=== PATIENT | male | born 1935 | race Caucasian/White ===

== ENCOUNTER 2017-11-10 10:59 | Inpatient (IN) | payer MEDICARE, OTHER ==
[2017-11-10] MEDS ORDERED: Clindamycin 600 MG IVPREMIX(* 600 MG/50 ML SDV IV ONE (11:45)
[2017-11-10] MEDS ORDERED: NS 0.9% 1000 ML*IV.FLUID IV ONE (11:45)
[2017-11-10] MEDS ORDERED: ceFAZolin 1 GM ADVAN(*) 1 GM in NS 0.9% 50 ML* 50 ML IVPB ONE (11:45)
--- NOTE | 2017-11-10 11:50 | ED ---
HPI Febrile Illness - HPI Summary HPI Summary: This is scribe Lasha Attebivet documenting for attending Nicki Montesinos. Patient is an 82 y/o M presents to ED with a fever. Assoc. Sx: Fever, fatigue, lower back pain, R knee pain, diaphoresis. Caregiver at bedside, unsure of last stool passage. She states that he is usually a very loud, independent man that is very sarcastic/lively. She reports he usually gets up early and eats breakfast but he did not do so this AM. Caregiver struggled to get him out of bed ~0930 this AM. When he was able to stand, he was leaning towards his right side, very unsteady gait, untalkative, increased confusion and a very hard stomach. I, Dr. Montesinos, personally performed the services described in this documentation as scribed in my presence and it is both accurate and complete. - History of Current Complaint Chief Complaint: EDFever Time Seen by Provider: 11/10/17 11:18 Hx Obtained From: Patient Onset/Duration: Started Hours Ago, Still Present Timing: Constant Pain Intensity: 6 Pain Scale Used: 0-10 Numeric Associated Signs and Symptoms: Diaphoresis, Other: - POS: fatigue, R knee pain, back pain - Allergy/Home Medications Allergies/Adverse Reactions: Allergies Allergy/AdvReac Type Severity Reaction Status Date / Time No Known Allergies Allergy Verified 11/10/17 13:04 Home Medications: Home Medications Acetaminophen TAB* [Tylenol TAB*] 650 mg PO Q4H PRN 11/10/17 [History Confirmed 11/10/17] Acetaminophen TAB* [Tylenol TAB*] 650 mg PO QAM PRN 11/10/17 [History Confirmed 11/10/17] Atorvastatin* [Lipitor*] 40 mg PO DAILY 11/10/17 [History Confirmed 11/10/17] Guaifenesin/Dextromethorphan [Robitussin Cough-Chest Dm Liq] 10 ml PO Q6HR PRN 11/10/17 [History Confirmed 11/10/17] Lisinopril TAB* [Prinivil TAB*] 20 mg PO DAILY 11/10/17 [History Confirmed 11/10] Melatonin 5 mg PO BEDTIME 11/10/17 [History Confirmed 11/10/17] Mineral Oil/Hydrophil Petrolat [Aquaphor Ointment] 396 gm TOPICAL BID 11/10/17 [ History Confirmed 11/10/17] PARoxetine HCL TAB* [Paxil TAB*] 20 mg PO DAILY 11/10/17 [History Confirmed ] risperiDONE [Risperidone] 0.5 mg PO DAILY PRN 11/10/17 [History Confirmed ] risperiDONE [Risperidone] 0.5 mg PO TID 11/10/17 [History Confirmed 11/10/17] PMH/Surg Hx/FS Hx/Imm Hx Endocrine/Hematology History: Denies: Hx Diabetes Cardiovascular History: Reports: Hx Hypertension, Other Cardiovascular Problems/ Disorders - Hyperlipidemia Infectious Disease History: No Infectious Disease History: Denies: Traveled Outside the [place] in Last 30 Days - Family History Known Family History: Positive: Other - Stroke, [place] Negative: Cardiac Disease, Diabetes - Social History Occupation: Retired Lives: With Family Review of Systems Positive: Fever, Fatigue, Skin Diaphoresis Positive: Other - POS: back pain, R knee pain. All Other Systems Reviewed And Are Negative: Yes Physical Exam Triage Information Reviewed: Yes Vital Signs On Initial Exam: Initial Vitals Resp 27 11/10/17 11:08 Vital Signs Reviewed: Yes Diagnostics - Vital Signs Vital Signs Temp Pulse Resp BP Pulse Ox 11/10/17 11:10 100.6 F 91 17 108/52 92 11/10/17 11:08 27 - Laboratory Result Diagrams: 11/10/17 12:07 11/10/17 21:10 Lab Statement: Any lab studies that have been ordered have been reviewed, and results considered in the medical decision making process. - Radiology cxr Xray Interpretation: No Acute Changes - IMPRESSION: No evidence of active cardiopulmonary disease. Radiology Interpretation Completed By: Radiologist - Report has been reviewed by provider and radiologist. - CT Brain CT CT Interpretation: No Acute Changes - IMPRESSION: Mild involutional change and stigmata of central large vessel atherosclerotic disease and peripheral chronic small vessel ischemic disease. No acute intracranial process evident. CT Interpretation Completed By: Radiologist - Report has been reviewed by provider and radiologist. - Ultrasound No standard instances Ultrasound Interpretation: No Acute Changes - IMPRESSION: DEPENDENT EDEMA. NO EVIDENCE OF DEEP VENOUS THROMBOSIS Ultrasound Interpretation Completed By: Radiologist - report has been reviewed by provider and radiologist. - EKG 1152 Cardiac Rate: NL - 89 bpm EKG Rhythm: Sinus Rhythm ST Segment: Normal EKG Interpretation: nml axis Course/Dx - Course Assessment/Plan: This patient is an 82-year-old male who [facility] with a chief complaint of having fevers up to 101, blood pressure 90/40, lethargic and mildly somnolent. Patient has past medical history for dementia, dyslipidemia, depression and occasionally he is delusional. As per primary care physician Dr. Maddox reports that a couple days ago and she increase his Risperdal and since then the patient is becoming more somnolent. Today he has been more lethargic, didn't want to go to the dining room to eat and he is febrile. After initial examination I noticed that the patient is positive for SIRS criteria therefore I used the sepsis protocol. Blood cultures were sent before antibiotics were given. Blood test results shows a white blood cell count of 26.9, neutrophils of 94 but is no bandemia. Sodium is 140, creatinine is 1.33, lactic acid is 4, troponin is 0.24, CRP is 38.0 and pro-calcitonin is 40.1. Chest x-ray shows no acute cardiopulmonary disease. Head CT impression: No acute intracranial pathology. We attempted twice to get and urinary Henderson catheter for control of hemodynamically instability however we failed. We attempted with a coud and we would not successful. Bladder scan shows only 220 cc therefore, I discussed case with Dr. Aguila from urology and he recommends to continue given IV fluids and see if the patient is in urinary retention. We will repeat the last scan in approximately one hour. At this time I added a broader spectrum antibiotic and I gave the patient Cefepime. The nurse was able to place a Henderson catheter and he has expressed approximate 400 cc of urine. Urinalysis is negative for UTI. At this point I discussed my physical exam, findings and test results with Dr. Bowling who accepted the patient for admission. The patient is feeling better, patient is a stable, patient is more awake. - Diagnoses Provider Diagnoses: Severe sepsis, Cellulitis, Elevated troponin I level - Provider Notifications Discussed Care Of Patient With: Juan Aguila Time Discussed With Above Provider: 14:00 Instructed by Provider To: Other - Discussed care of pt with Dr. Aguila, he reports blood scan was 200+. They will wait 1 hr and hydrate the patient to see if he can produce some urine. If he is unable to produce urine, he will have a suprapubic henderson catheter implanted. - Critical Care Time Critical Care Time: 75-104 min Discharge - Sign-Out/Discharge Documenting (check all that apply): Patient Departure - Discharge Plan Condition: Stable Disposition: ADMITTED TO [facility] - Billing Disposition and Condition Condition: STABLE Disposition: Admitted to [facility] Attestations Scribe Attestation: I, Dr. Montesinos personally performed the services described in this documentation as scribed in my presence and it is both accurate and complete. User Type: Provider with Scribe Provider Attestation: The documentation recorded by the scribe accurately reflects the service I personally performed and the decisions made by me.
[2017-11-10] MEDS ORDERED: Naloxone* 0.4 MG/ML 1 ML VIAL IV PUSH ONE (12:00)
[2017-11-10 12:16] LABS: Hematocrit 41 % (42-52); Mean Corpuscular HGB Conc 34 g/dl (31-36); Mean Corpuscular Hemoglobin 32 pg (27-31); Mean Corpuscular Volume 94 fL (80-94); Mean Platelet Volume 8.6 um3 (7.4-10.4); Platelet Count 170 10^3/ul (150-450); Red Blood Count 4.35 10^6/ul (4.00-5.40); Red Cell Distribution Width 13 % (10.5-15); White Blood Count 26.9 10^3/ul (3.5-10.8)
--- NOTE | 2017-11-10 12:21 | RAD ---
HISTORY: fever COMPARISONS: None VIEWS: 2: frontal portable view of the chest at 12:04 PM FINDINGS: LINES AND TUBES: None. CARDIOMEDIASTINAL SILHOUETTE: The cardiomediastinal silhouette is normal for portable technique. PLEURA: The costophrenic angles are sharp. No pleural abnormalities are noted. LUNG PARENCHYMA: The lungs are clear. ABDOMEN: The upper abdomen is clear. There is no subphrenic gas. BONES AND SOFT TISSUES: No bone or soft tissue abnormalities are noted. IMPRESSION: NO ACTIVE CARDIOPULMONARY DISEASE.
[2017-11-10 12:28] LABS: INR 1.04 (0.77-1.02)
[2017-11-10 12:44] LABS: EGFR Non-African American 51.6 (>60)
--- NOTE | 2017-11-10 12:57 | RAD ---
INDICATION: Pain and swelling. COMPARISON: None TECHNIQUE: Duplex interrogation of the right lowerextremity was performed. FINDINGS: Deep veins: The common femoral, great saphenous, profunda femoris, proximal, mid, and distal deep femoral, popliteal, posterior tibial, and peroneal veins are patent. There is normal compressibility, augmentation, and phasic flow. Superficial veins: There are no findings of superficial thrombophlebitis. Popliteal fossa:There is no evidence of a popliteal cyst. Soft tissues:There is mild diffuse soft tissue edema at the level of the calf. IMPRESSION: DEPENDENT EDEMA. NO EVIDENCE OF DEEP VENOUS THROMBOSIS
--- NOTE | 2017-11-10 13:18 | RAD ---
Indication: Altered mental status. Comparison: No relevant prior exams available on the [facility] PACS for comparison. Technique: Noncontrast CT vertex of skull through foramen magnum. Report: Mild prominence of the cerebral sulci reflecting atrophy. Unremarkable ventricles and basal cisterns. Decreased density in the periventricular and subcortical white matter while non-specific is most likely due to chronic microangiopathy. Negative for coto matter white matter obscuration, intra or extra-axial hemorrhage, or mass effect. Atherosclerotic calcification at the central intracranial arteries. Unremarkable orbital contents. No suspicious calvarial or skull base lesion evident. Clear visualized paranasal sinuses and mastoid air spaces. Unremarkable scalp. IMPRESSION: #. Mild involutional change and stigmata of central large vessel atherosclerotic disease and peripheral chronic small vessel ischemic disease. #. No acute intracranial process evident.
[2017-11-10 13:31] LABS: ABS Basophils 0.2 10^3/ul (0-0.2); ABS Eosinophils 0 10^3/ul (0-0.6); ABS Lymphocytes 0.4 10^3/ul (1.0-4.8); ABS Neutrophils 25.3 10^3/ul (1.5-7.7); ABS Nucleated RBC 0 10^3/ul; Eosinophil % 0 % (0-6); Lymphocyte % 1.6 % (25-47); Nucleated Red Blood Cells % 0.1
[2017-11-10] MEDS ORDERED: Cefepime 2 GM in Dextrose(*) 2 GM/50 ML BAG IV ONE (14:08)
[2017-11-10] MEDS ORDERED: Lidocaine 2% JELLY* 6 ML JELLY TOPICAL ONE (14:14)
[2017-11-10] MEDS ORDERED: Acetaminophen TAB* 325 MG PO PRN (14:42)
[2017-11-10 14:44] LABS: Urine Appearance Cloudy; Urine Blood 3+ (Negative); Urine Color Yellow; Urine Ketones Negative (Negative); Urine Protein 1+(30 mg/dL) (Negative); Urine Red Blood Cell 3+(>10/hpf) (Absent); Urine Specific Gravity 1.015 (1.010-1.030); Urine Urobilinogen Negative (Negative); Urine White Blood Cell Trace(0-5/hpf) (Absent)
--- NOTE | 2017-11-10 16:52 | CONSULT ---
Consult Consult: Consultation Note -- Critical Care Requesting Physician: Dr Chowdhury Reason for consult: septic shock Limitations in history/physical: dementia Date of consult: 11/10/2017 HPI: 82y M pmhx HTN, HLD, Dementia; patient comes to ER for fatigue, lethargy. He was confused as per caregiver and lethargic at home in the morning. Difficult to obtain history from patient due to dementia. In ER, tmax 100.6, tachycardic 90+, BP >100, sats 91%. He was found to have elevated WBC and ERIN and LA 4.0, next 4.7. He was started on a sepsis protocol, given IVF and IV abx. Currently patient in ICU, awake/alert, confused in history. denies complaints at this time. no distress. Not on pressors; on IVF now. ED/floor Course: as above ROS: limited ROS due to dementia PMHx: HTN, HLD, Dementia PSHx: unknown Family History: stroke, CVA Social History: unknown Allergies: Allergies Allergy/AdvReac Type Severity Reaction Status Date / Time No Known Allergies Allergy Verified 11/10/17 13:04 Home Medications: Acetaminophen TAB* [Tylenol TAB*] 650 mg PO Q4H PRN 11/10/17 [History Confirmed 11/10/17] Acetaminophen TAB* [Tylenol TAB*] 650 mg PO QAM PRN 11/10/17 [History Confirmed 11/10/17] Atorvastatin* [Lipitor*] 40 mg PO DAILY 11/10/17 [History Confirmed 11/10/17] Guaifenesin/Dextromethorphan [Robitussin Cough-Chest Dm Liq] 10 ml PO Q6HR PRN 11/10/17 [History Confirmed 11/10/17] Lisinopril TAB* [Prinivil TAB*] 20 mg PO DAILY 11/10/17 [History Confirmed 11/10] Melatonin 5 mg PO BEDTIME 11/10/17 [History Confirmed 11/10/17] Mineral Oil/Hydrophil Petrolat [Aquaphor Ointment] 396 gm TOPICAL BID 11/10/17 [ History Confirmed 11/10/17] PARoxetine HCL TAB* [Paxil TAB*] 20 mg PO DAILY 11/10/17 [History Confirmed ] risperiDONE [Risperidone] 0.5 mg PO DAILY PRN 11/10/17 [History Confirmed ] risperiDONE [Risperidone] 0.5 mg PO TID 11/10/17 [History Confirmed 11/10/17] Tele: nsr Vitals: Vital Signs Temp 100.1 F 11/10/17 16:00 Pulse 101 11/10/17 16:16 Resp 25 11/10/17 18:35 BP 173/85 11/10/17 16:16 Pulse Ox 96 11/10/17 16:16 Intake & Output 11/09/17 11/10/17 11/10/17 18:59 06:59 18:59 Intake Total 3120 Output Total 100 Balance 3020 Weight 98.3 kg Intake: IV Fluids 3120 Output: Henderson 100 O2/Vent: RA Infusions: LR Current Medications: Acetaminophen (Tylenol Tab*) 650 mg PO Q4H PRN PRN Reason: FEVER/PAIN Atorvastatin Calcium (Lipitor*) 40 mg PO DAILY [facility] Heparin Sodium (Porcine) (Heparin Vial(*)) 5,000 units SUBCUT Q8HR [facility] Lactated Ringer's (Lactated Ringers 1000 Ml Bag*) 1,000 mls @ 150 mls/hr IV PER RATE [facility] Last Admin: 11/10/17 16:26 Dose: 150 mls/hr Lactated Ringer's (Lactated Ringers 1000 Ml Bag*) 1,000 mls @ 0 mls/hr IV WIDE OPEN JULIO Stop: 11/10/17 23:59 Last Admin: 11/10/17 16:37 Dose: 999 mls/hr Vancomycin HCl 1,250 mg/ (Sodium Chloride) 250 mls @ 166.667 mls/hr IVPB ONCE ONE Stop: 11/10/17 18:59 Vancomycin HCl 1,000 mg/ (Sodium Chloride) 250 mls @ 166.667 mls/hr IVPB .CONTINUE PROTOCOL JULIO; Protocol Melatonin (Melatonin) 6 mg PO BEDTIME [facility] Paroxetine HCl (Paxil Tab*) 20 mg PO DAILY [facility] Pharmacy Consult (Zosyn Per Pharmacy*) 1 note FOLLOW UP .ZOSYN PER PHARMACY [facility] Risperidone (Risperdal) 0.5 mg PO TID [facility] Risperidone (Risperdal) 0.5 mg PO DAILY PRN PRN Reason: AGITATION Physical Exam: General: awake, alert, no distress, no diaphoresis Head: normocephalic, atraumatic HEENT: no pallor, no icterus, moist mucous membranes Neck: soft, supple, no stridor CVS: normal rate, regular, no murmur Resp: bilateral air entry, no rhales/wheeze/rhonchi, no acc muscle use Abdomen: soft, nontender, nondistended, bowel sounds present Ext: pulses+; right LE erythema from lower leg to mid-lower thigh, nontender, blanchable, pulses+ b/l, able to move ext without restriction. no palpable crepitus on right leg. Skin: intact, no wound noted. right leg erythema as above Neuro: awake, alert, orientedx1, moving all extremities, no gross focal deficit Labs: Laboratory Results - last 24 hr 11/10/17 11/10/17 11/10/17 12:07 12:07 12:07 WBC 26.9 H RBC 4.35 Hgb 14.0 Hct 41 L MCV 94 MCH 32 H MCHC 34 RDW 13 Plt Count 170 MPV 8.6 Neut % (Auto) 94.0 H Lymph % (Auto) 1.[address] [facility] % (Auto) 3.6 Eos % (Auto) 0 Baso % (Auto) 0.8 Absolute Neuts (auto) 25.3 H Absolute Lymphs (auto) 0.4 L Absolute Monos (auto) 1.0 H Absolute Eos (auto) 0 Absolute Basos (auto) 0.2 Absolute Nucleated RBC 0 Nucleated RBC % 0.1 ESR 10 INR (Anticoag Therapy) 1.04 H APTT 27.2 Fibrinogen 394.5 ABG pH ABG pCO2 ABG pO2 ABG HCO3 ABG O2 Saturation ABG Base Excess Sodium 140 Potassium TNP Chloride 103 Carbon Dioxide 27 Anion Gap 10 BUN 22 Creatinine 1.33 H Est GFR ( Amer) 62.4 Est GFR (Non-Af Amer) 51.6 BUN/Creatinine Ratio 16.5 Glucose 172 H Lactic Acid Calcium 9.1 Total Bilirubin 1.10 H AST TNP ALT 27 Alkaline Phosphatase 80 Total Creatine Kinase 229 H Troponin I 0.24 H* C-Reactive Protein 38.06 H B-Natriuretic Peptide Total Protein 5.8 L Albumin 3.7 Globulin 2.1 Albumin/Globulin Ratio 1.8 Procalcitonin Urine Color Urine Appearance Urine pH Ur Specific [place] Urine Protein Urine Ketones Urine Blood Urine Nitrate Urine Bilirubin Urine Urobilinogen Ur Leukocyte Esterase Urine WBC (Auto) Urine RBC (Auto) Urine Bacteria Hyaline Casts Urine Glucose 11/10/17 11/10/17 11/10/17 12:07 12:07 12:07 WBC RBC Hgb Hct MCV MCH MCHC RDW Plt Count MPV Neut % (Auto) Lymph % (Auto) [facility] % (Auto) Eos % (Auto) Baso % (Auto) Absolute Neuts (auto) Absolute Lymphs (auto) Absolute Monos (auto) Absolute Eos (auto) Absolute Basos (auto) Absolute Nucleated RBC Nucleated RBC % ESR INR (Anticoag Therapy) APTT Fibrinogen ABG pH ABG pCO2 ABG pO2 ABG HCO3 ABG O2 Saturation ABG Base Excess Sodium Potassium Chloride Carbon Dioxide Anion Gap BUN Creatinine Est GFR ( Amer) Est GFR (Non-Af Amer) BUN/Creatinine Ratio Glucose Lactic Acid 4.0 H* Calcium Total Bilirubin AST ALT Alkaline Phosphatase Total Creatine Kinase Troponin I C-Reactive Protein B-Natriuretic Peptide 153 H Total Protein Albumin Globulin Albumin/Globulin Ratio Procalcitonin 48.1 H Urine Color Urine Appearance Urine pH Ur Specific [place] Urine Protein Urine Ketones Urine Blood Urine Nitrate Urine Bilirubin Urine Urobilinogen Ur Leukocyte Esterase Urine WBC (Auto) Urine RBC (Auto) Urine Bacteria Hyaline Casts Urine Glucose 11/10/17 11/10/17 11/10/17 14:27 14:45 15:40 WBC RBC Hgb Hct MCV MCH MCHC RDW Plt Count MPV Neut % (Auto) Lymph % (Auto) [facility] % (Auto) Eos % (Auto) Baso % (Auto) Absolute Neuts (auto) Absolute Lymphs (auto) Absolute Monos (auto) Absolute Eos (auto) Absolute Basos (auto) Absolute Nucleated RBC Nucleated RBC % ESR INR (Anticoag Therapy) APTT Fibrinogen ABG pH 7.35 ABG pCO2 46 H ABG pO2 < 33 L* ABG HCO3 23.4 ABG O2 Saturation 57.6 L ABG Base Excess -0.6 Sodium Potassium Chloride Carbon Dioxide Anion Gap BUN Creatinine Est GFR ( Amer) Est GFR (Non-Af Amer) BUN/Creatinine Ratio Glucose Lactic Acid 4.7 H* Calcium Total Bilirubin AST ALT Alkaline Phosphatase Total Creatine Kinase Troponin I C-Reactive Protein B-Natriuretic Peptide Total Protein Albumin Globulin Albumin/Globulin Ratio Procalcitonin Urine Color Yellow Urine Appearance Cloudy Urine pH 5.0 Ur Specific [place] 1.015 Urine Protein 1+(30 mg/dl) A Urine Ketones Negative Urine Blood 3+ A Urine Nitrate Negative Urine Bilirubin Negative Urine Urobilinogen Negative Ur Leukocyte Esterase Negative Urine WBC (Auto) Trace(0-5/hpf) Urine RBC (Auto) 3+(>10/hpf) A Urine Bacteria Absent Hyaline Casts Present A Urine Glucose Negative 11/10/17 11/10/17 15:40 18:30 WBC RBC Hgb Hct MCV MCH MCHC RDW Plt Count MPV Neut % (Auto) Lymph % (Auto) [facility] % (Auto) Eos % (Auto) Baso % (Auto) Absolute Neuts (auto) Absolute Lymphs (auto) Absolute Monos (auto) Absolute Eos (auto) Absolute Basos (auto) Absolute Nucleated RBC Nucleated RBC % ESR INR (Anticoag Therapy) APTT Fibrinogen ABG pH ABG pCO2 ABG pO2 ABG HCO3 ABG O2 Saturation ABG Base Excess Sodium Potassium Chloride Carbon Dioxide Anion Gap BUN Creatinine Est GFR ( Amer) Est GFR (Non-Af Amer) BUN/Creatinine Ratio Glucose Lactic Acid Calcium Total Bilirubin AST ALT Alkaline Phosphatase Total Creatine Kinase Troponin I 0.44 H* 0.63 H* C-Reactive Protein B-Natriuretic Peptide Total Protein Albumin Globulin Albumin/Globulin Ratio Procalcitonin Urine Color Urine Appearance Urine pH Ur Specific [place] Urine Protein Urine Ketones Urine Blood Urine Nitrate Urine Bilirubin Urine Urobilinogen Ur Leukocyte Esterase Urine WBC (Auto) Urine RBC (Auto) Urine Bacteria Hyaline Casts Urine Glucose Imaging: cxr 11/10 - no infiltrate/effusion CT brain 11/10 - no acute process LE venous duplex 11/10 - no dvt Assessment: 82y M pmhx HTN, HLD, Dementia; patient comes to ER for fatigue, lethargy. He was confused as per caregiver and lethargic at home in the morning. Difficult to obtain history from patient due to dementia. In ER, tmax 100.6, tachycardic 90+, BP >100, sats 91%. He was found to have elevated WBC and ERIN and LA 4.0, next 4.7. He was started on a sepsis protocol. -Septic Shock -Right leg Cellulitus -ERIN -Delirium on Dementia -NSTEMI, type 2 suspected, demand from sepsis Plan: Neuro- baseline dementia. acute delirium 2/2 to likely underlying sepsis, hence metabolic encephalopathy. neurochecks. ct brain negative. Antipsychotics PRN for agitation would be appropriate. avoid bdz, Delirium prec. CVS- BP stable, tachycardia improving. No pressors needed. Cont IVF infusion, change to NS 100cc/hr. Monitor urine output. hold antihypertensives. trend LA, septic shock by criteria. IV abx. trend troponins/cpk/ckmb Resp- no resp distress, on RA. CXR clear of infiltrate. ID- tmax 100.6, wbc 24. Right leg cellulitus+. CXR clear. Blood cultures. Would cover gram positive organisms and anerobes, change to IV zosyn and Vanco. no visible superficial lesion/wound. GI- cardiac diet. Renal- ERIN, likely from septic ATN + volume depletion. IVF bolus/hydration. K okay. Lactic acidosis/metabolic acidosis from tissue hypoperfusion. henderson as needed. Heme- hg stable. plt stable. DVT proph chemical; no SCD on right leg. Endo- fingerstick as needed. Musculsk- pressure ulcer prophylaxis. Bedrest. Wounds- none; keep right leg elevated. Nutrition- cardiac diet DVT prophylaxis: heparin sq GI prophylaxis:- Central Line: - Arterial Line: - Henderson Cathetor: - Disposition: ICU Code Status: DNR Total Critical Care time is 35 minutes, excluding procedures/teaching Ramin Garg MD Html Developer (Electronically Signed)
[2017-11-10] MEDS ORDERED: Piperacillin/Tazobac ADVAN(*) 3.375 GM in NS 0.9% 100 ML* 100 ML IVPB ONE (17:00)
[2017-11-10] MEDS ORDERED: Zosyn per Pharmacy* NOTE FOLLOW UP SCH (17:00)
--- NOTE | 2017-11-10 17:07 | HP ---
CC: Dr. Maddox HISTORY AND PHYSICAL: DATE OF ADMISSION: 11/10/17 TIME OF EVALUATION: 2:00 p.m. PRIMARY CARE PROVIDER: Dr. Mdadox CHIEF COMPLAINT: "He is not himself," as per aide. HISTORY OF PRESENT ILLNESS: Mr. Coates is an 82-year-old male with a past medical history of dementia, hypertension, hyperlipidemia, who presents to the emergency room as he was not behaving himself. At this point, he states that he does not want to talk to me and cannot give me any history. Aide at bedside states that recently his Risperdal dose was increased and the aide noticed that he was a little less vibrant than usual. She describes him as a very loud independent man, very sarcastic, very lively, who is pretty independent with his ADLs, wakes up early to go eat his breakfast. Yesterday, during the day, she noticed that he was not so bright and she thought this was secondary to his Risperdal. This morning, he did not go for breakfast so she went to pick him up and she struggled to get him out of bed around 09:30 a.m. She states that he refused breakfast. She noticed that he was more confused than usual, was complaining of low back pain, right leg pain, was diaphoretic and found to have a fever, reason why he was brought to the emergency room for further evaluation. PAST MEDICAL HISTORY: 1. Hypertension. 2. Hyperlipidemia. 3. Dementia. MEDICATION LIST: 1. Acetaminophen 650 mg p.o. q.4 hours p.r.n. pain or fever. 2. Atorvastatin 40 mg p.o. daily. 3. Robitussin 10 mL p.o. q.6 hours p.r.n. cough. 4. Lisinopril 20 mg p.o. daily. 5. Melatonin 5 mg p.o. at bedtime. 6. Aquaphor ointment topical to dry skin b.i.d. 7. Paroxetine 20 mg p.o. daily. 8. Risperdal 0.5 mg p.o. t.i.d. plus 0.5 mg p.o. daily as needed for agitation. ALLERGIES: No known drug allergies. SOCIAL HISTORY: I am unable to obtain from the patient. He lives at [place]. Surrogate decision maker is his daughter, Paradise Samuels, phone number is [phone]. REVIEW OF SYSTEMS: I am unable to obtain from the patient as he refuses to talk to me. PHYSICAL EXAMINATION GENERAL: The patient is an elderly male, lying in the ED stretcher, in no acute distress. VITAL SIGNS: Temperature 100.6, heart rate is 93, respiratory rate is 18, oxygen saturation 94% on room air, blood pressure is 120/58. HEENT: Pupils are equal. Moist mucous membranes. CHEST: Breath sounds present bilaterally with no added sounds. CVS: Normal S1, S2. Regular rate and rhythm. ABDOMEN: Obese, soft. Bowel sounds present. EXTREMITIES: There is erythema extending from the right ankle all the way to 5 cm above his right knee. There is warmth, but no open areas and no purulence. NEURO: He is alert, awake, and oriented to self only. Able to move all 4 extremities. DIAGNOSTIC STUDIES/LAB DATA: The patient had a CBC that showed WBC of 26.9, hemoglobin of 14, hematocrit of 41, platelets of 170 with 94% neutrophils. INR was 1.04, APTT was 27.2, fibrinogen 394.5. ABG (which I suspect is actually a VBG) showed a pH of 7.35, pCO2 of 46, bicarb of 23, oxygen saturation of 57. Chemistry showed a sodium of 140, potassium was not measured due to hemolysis, chloride 103, bicarb 27, BUN 22, creatinine of 1.3, glucose of 172 with lactic acid of 4, calcium of 9.1. Total bilirubin is 1.1, AST could not be measured due to hemolysis, ALT was 27. CPK 229, troponin 0.24. CRP is 38. BNP 153 with a procalcitonin of 48.1. Urinalysis showed 1+ protein, 3+ blood, 3+ rbcs. CT of the brain showed mild involutional changes and stigmata of central large vessel atherosclerotic disease and peripheral chronic small vessel ischemic disease. No acute intracranial process is evident. Right lower extremity Doppler showed dependent edema, but no DVT. EKG done 11/10/17, at 11:52 a.m. showed sinus rhythm with no significant ST-T changes. No prior EKG to compare. ASSESSMENT AND PLAN: Mr. Coates is an 82-year-old male with a past medical history of hypertension, hyperlipidemia, dementia, who presents with 24 hours of fever, increased confusion, lethargy, anorexia, and today developed a right lower extremity erythema. 1. Severe sepsis. The patient's presentation is compatible with sepsis with fever and leukocytosis and he also has acute kidney injury, troponin elevation, lactic acid of 4. Chest x-ray showed no infiltrate. Urinalysis shows only hematuria. The most likely source is his right lower extremity cellulitis. The suddenness of his illness and the absence of purulence suggests streptococcal cellulitis. The patient will be admitted to the intensive care unit. He will receive aggressive fluid resuscitation, antibiotics, and we are going to monitor his lactic acid. 2. Right lower extremity streptococcal cellulitis. The patient will be continued on cefazolin. Blood cultures were sent in the emergency room. 3. Acute kidney injury. The patient's creatinine was 0.9 in August 2017. We are going to continue IV hydration and monitor his renal function. 4. Troponin elevation. There is no report of chest pain. The patient's EKG shows no acute EKG changes. First troponin was 0.24. I suspect this is demand ischemia in the setting of severe sepsis. We are going to check serial troponins until peak. 5. Lactic acidosis secondary to sepsis. The patient will receive fluid resuscitation and we are going to monitor his lactic acid. 6. Dementia. The patient will be continued on risperidone. 7. DVT prophylaxis: The patient has a score of 3 on the DVT Prophylaxis Risk Assessment Guide and he will be started on subcutaneous heparin. 8. Code status: The patient has an out of the hospital do not resuscitate. TIME SPENT: Approximately 50 minutes critical care time were spent to complete this admission. [id number]/[facility] #: [id number] CATHERINE
[2017-11-10] MEDS ORDERED: Vancomycin(*) 1,250 MG in NS 0.9% 250 ML* 250 ML IVPB ONE (17:30)
[2017-11-10] MEDS ORDERED: Haloperidol INJ IV/IM* 5 MG/ML AMP IM ONE (17:46)
[2017-11-10] MEDS ORDERED: LORazepam INJ* 2 MG/ML 1 ML VIAL ONE (18:27)
--- NOTE | 2017-11-10 19:50 | PN ---
Sepsis Event Evaluation Date of Evaluation: 11/10/17 Time of Evaluation: 19:30 Current Stage of Sepsis: Septic Shock - based on previous lactic awaiting repeat Vital Signs - Last 12 Hours: Vital Signs - 12 hr Temp Pulse Resp BP Pulse Ox 11/10/17 19:02 106 22 150/71 92 11/10/17 19:00 108 22 92 11/10/17 18:35 25 11/10/17 18:30 105 24 149/71 93 11/10/17 18:01 95 24 124/70 94 11/10/17 18:00 94 20 93 11/10/17 17:30 98 17 112/77 96 11/10/17 17:13 15 11/10/17 17:00 100 19 134/62 96 11/10/17 16:31 98 22 130/63 99 11/10/17 16:16 101 18 173/85 96 11/10/17 16:05 15 11/10/17 16:03 150/70 11/10/17 16:00 100.1 F 11/10/17 15:50 100.1 F 111 23 150/70 96 11/10/17 15:42 28 127/71 11/10/17 15:12 94 18 134/72 93 11/10/17 15:00 94 16 93 11/10/17 14:44 94 18 126/69 94 11/10/17 14:12 93 18 120/58 94 11/10/17 14:00 15 11/10/17 13:44 18 124/64 11/10/17 13:12 88 14 114/58 94 11/10/17 13:07 88 94 11/10/17 12:55 93 11/10/17 12:42 88 16 102/54 94 11/10/17 12:12 19 110/56 11/10/17 12:00 91 17 95 11/10/17 11:40 88 16 102/49 93 11/10/17 11:10 100.6 F 91 17 108/52 92 11/10/17 11:08 27 Lactic Acid: 11/10/17 11/10/17 12:07 15:40 Lactic Acid 4.0 H* 4.7 H* Exceptions to Standard of Care: repeat lactic at 2000 - Cardiopulmonary Exam Capillary Refill: Immediate Respiratory: Symmetrical Chest Expansion and Respiratory Effort Cardiovascular: NL Sounds; No Murmurs; No JVD - Peripheral Pulse Exam Radial Pulses: Bilateral Normal Pedal Pulses: Bilateral Normal Posterior Tibial Pulse: Bilateral Normal Femoral Pulses: Bilateral Normal Popliteal Pulses: Bilateral Normal - Skin Exam Skin Exam: Flushed - Arely Coma Scale Best Eye Response: 3 - To Speech Best Motor Response: 6 - Obeys Commands Best Verbal Response: 4 - Confused Coma Scale Total: 13 Assess/Plan/Problems-Billing Assessment: 82 male patient admitted with sepsis due to cellulitis of RLE - Patient Problems (1) Sepsis Current Visit: Yes Status: Acute Priority: High Comment: Bp holding patient confused but opens eyes to name will follow simple commands. Trop up to .63 suspect demand ischemia, bp stable, hr 90 resp status stable, continue ivf, bolus prn, repeat lactic pending, continue iv abx, based on last lactic patient in shock phase of sepsis however reassuring given bp and mentation, awaitng repeat, Status and Disposition: ICU continue sepsis protocol
[2017-11-10] MEDS ORDERED: ceFAZolin 1 GM VIAL(*) 1 GM in NS 0.9% 50 ML* 50 ML IVPB SCH (20:00)
[2017-11-10] MEDS ORDERED: Melatonin 3 MG TAB PO SCH (21:00)
[2017-11-10 21:46] LABS: EGFR Non-African American 69.3 (>60)
[2017-11-10] MEDS ORDERED: Haloperidol INJ IV/IM* 5 MG/ML AMP IV SLOW PU ONE (22:00)
[2017-11-10] MEDS: Heparin VIAL(*) 5000 UNITS/ML VIAL (FIVE THOUSAND) SUBCUT SCH (22:50)
[2017-11-10] MEDS: ZOSYN 3.375 GM Q8H per EXTENDED INFUSION IVPB SCH ×2 (22:50)
[2017-11-11 05:35] LABS: ABS Basophils 0.1 10^3/ul (0-0.2); ABS Eosinophils 0 10^3/ul (0-0.6); ABS Lymphocytes 0.7 10^3/ul (1.0-4.8); ABS Monocytes 0.8 10^3/ul (0-0.8); ABS Neutrophils 17.1 10^3/ul (1.5-7.7); ABS Nucleated RBC 0 10^3/ul; Eosinophil % 0 % (0-6); Hematocrit 39 % (42-52); Hemoglobin 13.6 g/dl (14.0-18.0); Lymphocyte % 3.9 % (25-47); Mean Corpuscular HGB Conc 35 g/dl (31-36); Mean Corpuscular Hemoglobin 33 pg (27-31); Mean Corpuscular Volume 94 fL (80-94); Mean Platelet Volume 8.7 um3 (7.4-10.4); Nucleated Red Blood Cells % 0; Platelet Count 142 10^3/ul (150-450); Red Blood Count 4.18 10^6/ul (4.00-5.40); Red Cell Distribution Width 13 % (10.5-15); White Blood Count 18.7 10^3/ul (3.5-10.8)
[2017-11-11 05:52] LABS: EGFR Non-African American 68.5 (>60)
[2017-11-11] MEDS: Heparin VIAL(*) 5000 UNITS/ML VIAL (FIVE THOUSAND) SUBCUT SCH ×2 (06:09→23:38)
[2017-11-11] MEDS: ZOSYN 3.375 GM Q8H per EXTENDED INFUSION IVPB SCH ×6 (06:22→22:45)
[2017-11-11] MEDS ORDERED: Iodixanol* (CONTRAST) 320 MG/ML 100 ML SDV IV ONE (07:40)
[2017-11-11] MEDS: Vancomycin(*) 1,000 MG in NS 0.9% 250 ML* 250 ML IVPB SCH ×2 (08:42→20:46)
[2017-11-11] MEDS ORDERED: PARoxetine HCL TAB* 20 MG PO SCH (09:00)
[2017-11-11] MEDS ORDERED: Atorvastatin* 40 MG TAB PO SCH (09:00)
[2017-11-11] MEDS ORDERED: Haloperidol INJ IV/IM* 5 MG/ML AMP IM PRN (10:13)
--- NOTE | 2017-11-11 10:20 | PN ---
Progress Note - Progress Note Date of Service: 11/11/17 Note: Progress Note -- Critical Care 24 hour events: -awake, alert, not very conversive -was agitated last night, kicking/punching, given haldol IV/IM -overnight LA improved; tmax 100.9 -BP stable, not tachy -today abd more distended; some bright red blood in bowel movements this morning -no vom/nausea; denies cp/sob Tele: nsr Vitals: Vital Signs Temp 100.9 F 11/11/17 03:40 Pulse 84 11/11/17 09:00 Resp 18 11/11/17 09:00 BP 139/65 11/11/17 08:01 Pulse Ox 95 11/11/17 09:00 Intake & Output 11/10/17 11/11/17 11/11/17 18:59 06:59 18:59 Intake Total 3120 1178 Output Total 100 658 135 Balance 3020 520 -135 Weight 98.3 kg 100.5 kg 100.244 kg Intake: IV Fluids 3120 797 LR 658 NS (0.9%) 139 IVPB 381 LR 270 NS (0.9%) 111 Output: Stephenson 100 658 135 O2/Vent: 2L NC Infusions: NS 100cc/hr Current Medications: Acetaminophen (Tylenol Tab*) 650 mg PO Q4H PRN PRN Reason: FEVER/PAIN Haloperidol Lactate (Haldol Inj Iv/Im*) 5 mg IV SLOW PU Q6H PRN PRN Reason: AGITATION Vancomycin HCl 1,000 mg/ (Sodium Chloride) 250 mls @ 166.667 mls/hr IVPB Q12H JULIO; Protocol Last Admin: 11/11/17 08:42 Dose: 166.667 mls/hr Sodium Chloride (Ns 0.9% 1000 Ml*) 1,000 mls @ 100 mls/hr IV PER RATE [facility] Piperacillin Sod/Tazobactam (Sod 3.375 gm/ Sodium Chloride) 100 mls @ 25 mls/ hr IVPB Q8H JULIO Last Admin: 11/11/17 06:22 Dose: 25 mls/hr Potassium Chloride (Potassium Chloride 20 Meq/100 Ml Ivpremix*) 20 meq in 100 mls @ 50 mls/hr IV Q2H [facility] Stop: 11/11/17 14:59 Lorazepam (Ativan Inj*) 1 mg IV PUSH Q6H PRN PRN Reason: Anxiety/Agitation Pharmacy Consult (Zosyn Per Pharmacy*) 1 note FOLLOW UP .ZOSYN PER PHARMACY [facility] Pharmacy Profile Note (Vancomycin Trough Check) 1 note FOLLOW UP ONCE ONE Stop: 11/12/17 07:31 Physical Exam: General: awake, alert, no distress, no diaphoresis Head: normocephalic, atraumatic HEENT: no pallor, no icterus, moist mucous membranes Neck: soft, supple, no stridor CVS: normal rate, regular, no murmur Resp: bilateral air entry, no rhales/wheeze/rhonchi, no acc muscle use Abdomen: soft, distended, nontender, tympanic, bowel sounds present Ext: pulses+; right LE erythema from lower leg to mid-upper thigh, minimal tenderness, no crepitus, blanchable, pulses+ b/l, able to move ext without restriction. Skin: intact, no wound noted. right leg erythema as above Neuro: awake, alert, orientedx1, moving all extremities, no gross focal deficit Labs: Laboratory Results - last 24 hr 11/10/17 11/10/17 11/10/17 12:07 12:07 12:07 WBC 26.9 H RBC 4.35 Hgb 14.0 Hct 41 L MCV 94 MCH 32 H MCHC 34 RDW 13 Plt Count 170 MPV 8.6 Neut % (Auto) 94.0 H Lymph % (Auto) 1.6 L Pender % (Auto) 3.6 Eos % (Auto) 0 Baso % (Auto) 0.8 Absolute Neuts (auto) 25.3 H Absolute Lymphs (auto) 0.4 L Absolute Monos (auto) 1.0 H Absolute Eos (auto) 0 Absolute Basos (auto) 0.2 Absolute Nucleated RBC 0 Nucleated RBC % 0.1 ESR 10 INR (Anticoag Therapy) 1.04 H APTT 27.2 Fibrinogen 394.5 ABG pH ABG pCO2 ABG pO2 ABG HCO3 ABG O2 Saturation ABG Base Excess Sodium 140 Potassium TNP Chloride 103 Carbon Dioxide 27 Anion Gap 10 BUN 22 Creatinine 1.33 H Est GFR ( Amer) 62.4 Est GFR (Non-Af Amer) 51.6 BUN/Creatinine Ratio 16.5 Glucose 172 H Lactic Acid Calcium 9.1 Total Bilirubin 1.10 H AST TNP ALT 27 Alkaline Phosphatase 80 Total Creatine Kinase 229 H CK-MB (CK-2) Troponin I 0.24 H* C-Reactive Protein 38.06 H B-Natriuretic Peptide Total Protein 5.8 L Albumin 3.7 Globulin 2.1 Albumin/Globulin Ratio 1.8 Procalcitonin Urine Color Urine Appearance Urine pH Ur Specific [place] Urine Protein Urine Ketones Urine Blood Urine Nitrate Urine Bilirubin Urine Urobilinogen Ur Leukocyte Esterase Urine WBC (Auto) Urine RBC (Auto) Urine Bacteria Hyaline Casts Urine Glucose 11/10/17 11/10/17 11/10/17 12:07 12:07 12:07 WBC RBC Hgb Hct MCV MCH MCHC RDW Plt Count MPV Neut % (Auto) Lymph % (Auto) Pender % (Auto) Eos % (Auto) Baso % (Auto) Absolute Neuts (auto) Absolute Lymphs (auto) Absolute Monos (auto) Absolute Eos (auto) Absolute Basos (auto) Absolute Nucleated RBC Nucleated RBC % ESR INR (Anticoag Therapy) APTT Fibrinogen ABG pH ABG pCO2 ABG pO2 ABG HCO3 ABG O2 Saturation ABG Base Excess Sodium Potassium Chloride Carbon Dioxide Anion Gap BUN Creatinine Est GFR ( Amer) Est GFR (Non-Af Amer) BUN/Creatinine Ratio Glucose Lactic Acid 4.0 H* Calcium Total Bilirubin AST ALT Alkaline Phosphatase Total Creatine Kinase CK-MB (CK-2) Troponin I C-Reactive Protein B-Natriuretic Peptide 153 H Total Protein Albumin Globulin Albumin/Globulin Ratio Procalcitonin 48.1 H Urine Color Urine Appearance Urine pH Ur Specific [place] Urine Protein Urine Ketones Urine Blood Urine Nitrate Urine Bilirubin Urine Urobilinogen Ur Leukocyte Esterase Urine WBC (Auto) Urine RBC (Auto) Urine Bacteria Hyaline Casts Urine Glucose 11/10/17 11/10/17 11/10/17 14:27 14:45 15:40 WBC RBC Hgb Hct MCV MCH MCHC RDW Plt Count MPV Neut % (Auto) Lymph % (Auto) Pender % (Auto) Eos % (Auto) Baso % (Auto) Absolute Neuts (auto) Absolute Lymphs (auto) Absolute Monos (auto) Absolute Eos (auto) Absolute Basos (auto) Absolute Nucleated RBC Nucleated RBC % ESR INR (Anticoag Therapy) APTT Fibrinogen ABG pH 7.35 ABG pCO2 46 H ABG pO2 < 33 L* ABG HCO3 23.4 ABG O2 Saturation 57.6 L ABG Base Excess -0.6 Sodium Potassium Chloride Carbon Dioxide Anion Gap BUN Creatinine Est GFR ( Amer) Est GFR (Non-Af Amer) BUN/Creatinine Ratio Glucose Lactic Acid 4.7 H* Calcium Total Bilirubin AST ALT Alkaline Phosphatase Total Creatine Kinase CK-MB (CK-2) Troponin I C-Reactive Protein B-Natriuretic Peptide Total Protein Albumin Globulin Albumin/Globulin Ratio Procalcitonin Urine Color Yellow Urine Appearance Cloudy Urine pH 5.0 Ur Specific [place] 1.015 Urine Protein 1+(30 mg/dl) A Urine Ketones Negative Urine Blood 3+ A Urine Nitrate Negative Urine Bilirubin Negative Urine Urobilinogen Negative Ur Leukocyte Esterase Negative Urine WBC (Auto) Trace(0-5/hpf) Urine RBC (Auto) 3+(>10/hpf) A Urine Bacteria Absent Hyaline Casts Present A Urine Glucose Negative 11/10/17 11/10/17 11/10/17 15:40 18:30 21:10 WBC RBC Hgb Hct MCV MCH MCHC RDW Plt Count MPV Neut % (Auto) Lymph % (Auto) Pender % (Auto) Eos % (Auto) Baso % (Auto) Absolute Neuts (auto) Absolute Lymphs (auto) Absolute Monos (auto) Absolute Eos (auto) Absolute Basos (auto) Absolute Nucleated RBC Nucleated RBC % ESR INR (Anticoag Therapy) APTT Fibrinogen ABG pH ABG pCO2 ABG pO2 ABG HCO3 ABG O2 Saturation ABG Base Excess Sodium 140 Potassium 3.8 Chloride 108 Carbon Dioxide 22 Anion Gap 10 BUN 25 H Creatinine 1.03 Est GFR ( Amer) 83.9 Est GFR (Non-Af Amer) 69.3 BUN/Creatinine Ratio 24.3 H Glucose 153 H Lactic Acid Calcium 7.9 L Total Bilirubin AST ALT Alkaline Phosphatase Total Creatine Kinase 656 H CK-MB (CK-2) 7.0 H Troponin I 0.44 H* 0.63 H* 0.72 H* C-Reactive Protein B-Natriuretic Peptide Total Protein Albumin Globulin Albumin/Globulin Ratio Procalcitonin Urine Color Urine Appearance Urine pH Ur Specific [place] Urine Protein Urine Ketones Urine Blood Urine Nitrate Urine Bilirubin Urine Urobilinogen Ur Leukocyte Esterase Urine WBC (Auto) Urine RBC (Auto) Urine Bacteria Hyaline Casts Urine Glucose 11/10/17 11/11/17 11/11/17 21:51 05:18 05:18 WBC 18.7 H RBC 4.18 Hgb 13.6 L Hct 39 L MCV 94 MCH 33 H MCHC 35 RDW 13 Plt Count 142 L MPV 8.7 Neut % (Auto) 91.4 H Lymph % (Auto) 3.9 L Pender % (Auto) 4.3 Eos % (Auto) 0 Baso % (Auto) 0.4 Absolute Neuts (auto) 17.1 H Absolute Lymphs (auto) 0.7 L Absolute Monos (auto) 0.8 Absolute Eos (auto) 0 Absolute Basos (auto) 0.1 Absolute Nucleated RBC 0 Nucleated RBC % 0 ESR INR (Anticoag Therapy) APTT Fibrinogen ABG pH ABG pCO2 ABG pO2 ABG HCO3 ABG O2 Saturation ABG Base Excess Sodium 138 Potassium 3.5 Chloride 107 Carbon Dioxide 26 Anion Gap 5 BUN 24 Creatinine 1.04 Est GFR ( Amer) 82.9 Est GFR (Non-Af Amer) 68.5 BUN/Creatinine Ratio 23.1 H Glucose 137 H Lactic Acid 2.3 H* Calcium 8.3 L Total Bilirubin 1.60 H AST 52 H ALT 28 Alkaline Phosphatase 73 Total Creatine Kinase 843 H CK-MB (CK-2) 7.2 H Troponin I 0.59 H* C-Reactive Protein 171.67 H B-Natriuretic Peptide Total Protein 5.6 L Albumin 3.4 Globulin 2.2 Albumin/Globulin Ratio 1.5 Procalcitonin Urine Color Urine Appearance Urine pH Ur Specific [place] Urine Protein Urine Ketones Urine Blood Urine Nitrate Urine Bilirubin Urine Urobilinogen Ur Leukocyte Esterase Urine WBC (Auto) Urine RBC (Auto) Urine Bacteria Hyaline Casts Urine Glucose Imaging: cxr 11/10 - no infiltrate/effusion CT brain 11/10 - no acute process LE venous duplex 11/10 - no dvt Assessment: 82y M pmhx HTN, HLD, Dementia; patient comes to ER for fatigue, lethargy. He was confused as per caregiver and lethargic at home in the morning. Difficult to obtain history from patient due to dementia. In ER, tmax 100.6, tachycardic 90+, BP >100, sats 91%. He was found to have elevated WBC and ERIN and LA 4.0, next 4.7. He was started on a sepsis protocol. -Septic Shock; now severe sepsis -Right leg Cellulitus -abdominal distension -ERIN -Delirium on Dementia -NSTEMI, type 2 suspected, demand from sepsis Plan: Neuro- baseline dementia. acute delirium 2/2 to likely underlying sepsis. likely now just baseline cognitive impairment with episodic fluctuations. Haldol IV PRN. avoid bdz, Delirium prec. CVS- BP stable, tachycardia resolved. Cont IVF infusion, NS 100cc/hr. hold antihypertensives. LA improved, send repeat now. IV abx. Troponins downtrending now, EKG 11/[address]/t changes; likely NSTEMI type 2 due to underlyign sepsis/demand. Resp- no resp distress, on 2L NC ID- tmax 100.9, wbc 24->18, improved. Right leg cellulitus+, increased erythema to upper right thigh now, no crepitus or increased pain. Blood cultures pending. Cover gram positive organisms and anerobes, Cont IV zosyn (day#2) and Vanco (day#2). no visible superficial lesion/wound. GI- distended abdomen+, no nausea/vom. some blood from bowel movement with bright red. CT abd/pelvis ordered by primary team today. keep NPO. start pepcid daily.l Renal- ERIN, Cr better, urine output+; improved. Replete IV KCL. Lactic acid improved. check LA now. maintain NS 100cc/hr for today. Heme- hg stable. plt stable. DVT proph chemical; no SCD on right leg. Endo- fingerstick as needed. Musculsk- pressure ulcer prophylaxis. Bedrest. Wounds- none; keep right leg elevated. Nutrition- cardiac diet DVT prophylaxis: heparin sq GI prophylaxis:pepcid Central Line: - Arterial Line: - Stephenson Cathetor: - Disposition: ICU Code Status: DNR Ramin Garg MD Oil Inspector (Electronically Signed)
[2017-11-11] MEDS: LORazepam INJ* 2 MG/ML 1 ML VIAL IV PUSH PRN (10:42)
--- NOTE | 2017-11-11 11:22 | RAD ---
CLINICAL HISTORY: Abdominal pain, rectal bleed, severe sepsis COMPARISON: None TECHNIQUE: Multiple contiguous axial CT scans were obtained of the abdomen and pelvis after the administration of intravenous contrast. Coronal and sagittal multiplanar reformations are submitted for review. Oral contrast was administered. Delayed images were obtained through the abdomen. FINDINGS: There are small bilateral pleural effusions. LUNG BASES: The lung bases are clear. LIVER: The liver is normal in shape, size, contour, and attenuation. BILE DUCTS: There is no intrahepatic or extrahepatic biliary dilatation. GALLBLADDER: The gallbladder is not visualized. Surgical clips are noted in the gallbladder fossa. PANCREAS: The pancreas is normal, without mass or ductal dilatation. SPLEEN: Normal in size and appearance. UPPER GI TRACT: Evaluation of the gastrointestinal tract is limited by incomplete gastric distention. The upper GI tract is unremarkable. SMALL BOWEL AND MESENTERY: The small bowel is normal in contour, course, and caliber. There is no obstruction or dilatation. COLON: The large bowel is fluid-filled without dilatation. ADRENALS: Normal bilaterally. KIDNEYS: The kidneys are normal in shape, size, contour, and axis. There is no hydronephrosis or nephrolithiasis. BLADDER: The bladder is collapsed around a Stephenson catheter. PELVIC ORGANS: The prostate gland is markedly enlarged. AORTA: There is atherosclerosis of the abdominal aorta. There is an infrarenal abdominal aortic aneurysm measuring up to 3.3 x 3 cm transversely and extending 4 cm in length. IVC: Unremarkable LYMPH NODES: There is no lymphadenopathy by size criteria. ABDOMINAL WALL: There is no evidence for abdominal wall hernia. BONES AND SOFT TISSUES: Degenerative changes are noted. OTHER: None IMPRESSION: 1. SMALL BILATERAL PLEURAL EFFUSIONS. 2. MARKEDLY ENLARGED PROSTATE. 3. ATHEROSCLEROSIS OF THE ABDOMINAL AORTA WITH A 3.3 CM INTRARENAL ABDOMINAL AORTIC ANEURYSM. 4. THE LARGE BOWEL IS FLUID-FILLED WHICH CAN BE SEEN WITH DIARRHEAL ILLNESS.
[2017-11-11] MEDS: Famotidine IV* 10 MG/ML 2 ML (20 mg) IV SLOW PU SCH (12:12)
[2017-11-11] MEDS: KCL 20 MEQ/100 ML IVPREMIX* 20 MEQ/100 ML BAG IV SCH ×2 (12:12→14:43)
--- NOTE | 2017-11-11 12:29 | PN ---
Subjective Date of Service: 11/11/17 Interval History: HOSPITALIST PROGRESS NOTE Patient seen and examined at bedside. Care reviewed and d/w Mckenna Hernandez RN. He was agitated overnight requiring more Haldol. Had BRBPR overnight and still feels like he needs to have a BM. Family History: Unchanged from Admission Social History: Unchanged from Admission Past Medical History: Unchanged from Admission Objective Active Medications: Acetaminophen (Tylenol Tab*) 650 mg PO Q4H PRN PRN Reason: FEVER/PAIN Famotidine (Pepcid Iv*) 20 mg IV SLOW PU DAILY [facility] Last Admin: 11/11/17 12:12 Dose: 20 mg Haloperidol Lactate (Haldol Inj Iv/Im*) 5 mg IV SLOW PU Q6H PRN PRN Reason: AGITATION Vancomycin HCl 1,000 mg/ (Sodium Chloride) 250 mls @ 166.667 mls/hr IVPB Q12H [facility]; Protocol Last Admin: 11/11/17 08:42 Dose: 166.667 mls/hr Sodium Chloride (Ns 0.9% 1000 Ml*) 1,000 mls @ 100 mls/hr IV PER RATE [facility] Piperacillin Sod/Tazobactam (Sod 3.375 gm/ Sodium Chloride) 100 mls @ 25 mls/ hr IVPB Q8H [facility] Last Admin: 11/11/17 06:22 Dose: 25 mls/hr Potassium Chloride (Potassium Chloride 20 Meq/100 Ml Ivpremix*) 20 meq in 100 mls @ 50 mls/hr IV Q2H [facility] Stop: 11/11/17 14:59 Last Admin: 11/11/17 12:12 Dose: 50 mls/hr Lorazepam (Ativan Inj*) 1 mg IV PUSH Q6H PRN PRN Reason: Anxiety/Agitation Last Admin: 11/11/17 10:42 Dose: 1 mg Pharmacy Consult (Zosyn Per Pharmacy*) 1 note FOLLOW UP .ZOSYN PER PHARMACY [facility] Pharmacy Profile Note (Vancomycin Trough Check) 1 note FOLLOW UP ONCE ONE Stop: 11/12/17 07:31 Vital Signs - 8 hr 11/11/17 11/11/17 11/11/17 04:31 05:00 05:01 Pulse Rate 83 88 88 Respiratory 20 21 21 Rate Blood Pressure 143/79 154/72 (mmHg) O2 Sat by Pulse 93 94 94 Oximetry 11/11/17 11/11/17 11/11/17 05:31 06:00 06:01 Pulse Rate 86 87 87 Respiratory 21 22 21 Rate Blood Pressure 163/75 144/75 (mmHg) O2 Sat by Pulse 96 98 97 Oximetry 11/11/17 11/11/17 11/11/17 06:31 07:00 07:01 Pulse Rate 87 87 86 Respiratory 20 21 20 Rate Blood Pressure 151/73 154/94 (mmHg) O2 Sat by Pulse 98 95 97 Oximetry 11/11/17 11/11/17 11/11/17 08:00 08:01 09:00 Pulse Rate 83 82 84 Respiratory 21 17 18 Rate Blood Pressure 139/65 (mmHg) O2 Sat by Pulse 91 92 95 Oximetry 11/11/17 11/11/17 11/11/17 10:00 10:01 10:42 Pulse Rate 88 92 Respiratory 19 13 19 Rate Blood Pressure 136/55 (mmHg) O2 Sat by Pulse 96 93 Oximetry 11/11/17 11/11/17 11:18 11:51 Pulse Rate 88 Respiratory 19 Rate Blood Pressure (mmHg) O2 Sat by Pulse 91 Oximetry Oxygen Devices in Use Now: None Appearance: Elderly gentleman lying in bed in NAD. Eyes: No Scleral Icterus Ears/Nose/Mouth/Throat: Mucous Membranes Moist Neck: Trachea Midline Respiratory: Symmetrical Chest Expansion and Respiratory Effort, Clear to Auscultation Cardiovascular: RRR - Normal S1 and S2 Abdominal: - - Distended, non tender, NG, NR, BS+ and metallic Extremities: - - RLE edema, erythema has extended to upper inner thigh, good pulses and capillary refill Neurological: - - Arousable to voice, Ox1 (self) Result Diagrams: 11/11/17 05:18 11/11/17 05:18 Assess/Plan/Problems-Billing Assessment: Mr Coates is an 82yo M with PMH of HTN, HLD, dementia, who presented to ED with fever, confusion, found to have severe sepsis/septic shock secondary to RLE cellulitis. - Patient Problems (1) Septic shock Comment: - Presentation compatible with sepsis with fever and leukocytosis. Also has delirium, ERIN, and LA peaked at 4.7. - Source is RLE cellulitis. (2) Cellulitis Comment: - Cultures show no growth so far. - Continue Vancomycin and Zosyn. (3) BRBPR (bright red blood per rectum) Comment: - Badome is distended, but not tender. - May have ischemic colitis in the setting of septic shock. - Check CT abd/pelvis. (4) Delirium Comment: - Secondary to sepsis on top of dementia. - Continue Haldol as needed. Avoid benzos. (5) ERIN (acute kidney injury) Comment: - Secondary to sepsis. - Improved. - Continue IVF. (6) Lactic acidosis Comment: - Resolved. (7) Elevated troponin Comment: - Secondary to demand ischemia. - Troponins are trending down. - Check echo to r/o wall motion abnormalities. (8) DVT prophylaxis (9) DNR (do not resuscitate) Status and Disposition: Inpatient.
[2017-11-11] MEDS: NS 0.9% 1000 ML* 1,000 ML IV SCH (19:00)
[2017-11-11] MEDS: Haloperidol INJ IV/IM* 5 MG/ML AMP IV SLOW PU PRN (19:12)
[2017-11-12] MEDS: hydrALAZINE IV* 20 MG/ML VIAL IV PRN ×2 (00:21→05:51)
[2017-11-12] MEDS: Haloperidol INJ IV/IM* 5 MG/ML AMP IV SLOW PU PRN ×2 (00:52→11:57)
[2017-11-12] MEDS: NS 0.9% 1000 ML* 1,000 ML IV SCH (05:49)
[2017-11-12] MEDS: ZOSYN 3.375 GM Q8H per EXTENDED INFUSION IVPB SCH ×6 (05:51→22:25)
[2017-11-12] MEDS: Heparin VIAL(*) 5000 UNITS/ML VIAL (FIVE THOUSAND) SUBCUT SCH ×3 (06:48→22:52)
[2017-11-12] MEDS ORDERED: Vancomycin Trough Check NOTE FOLLOW UP ONE (07:30)
[2017-11-12 07:41] LABS: ABS Basophils 0.1 10^3/ul (0-0.2); ABS Eosinophils 0 10^3/ul (0-0.6); ABS Lymphocytes 0.5 10^3/ul (1.0-4.8); ABS Monocytes 0.6 10^3/ul (0-0.8); ABS Neutrophils 13.5 10^3/ul (1.5-7.7); ABS Nucleated RBC 0 10^3/ul; Eosinophil % 0 % (0-6); Hematocrit 37 % (42-52); Hemoglobin 13.3 g/dl (14.0-18.0); Lymphocyte % 3.3 % (25-47); Mean Corpuscular HGB Conc 36 g/dl (31-36); Mean Corpuscular Hemoglobin 33 pg (27-31); Mean Corpuscular Volume 92 fL (80-94); Mean Platelet Volume 8.5 um3 (7.4-10.4); Nucleated Red Blood Cells % 0.2; Platelet Count 133 10^3/ul (150-450); Red Blood Count 4.06 10^6/ul (4.00-5.40); Red Cell Distribution Width 13 % (10.5-15); White Blood Count 14.7 10^3/ul (3.5-10.8)
[2017-11-12 07:58] LABS: EGFR Non-African American 98.4 (>60)
[2017-11-12] MEDS ORDERED: Potassium Chlor TAB* 20 MEQ TAB.ER PO STA (08:19)
[2017-11-12] MEDS: Famotidine IV* 10 MG/ML 2 ML (20 mg) IV SLOW PU SCH (08:42)
[2017-11-12] MEDS ORDERED: Famotidine IV * 20 MG in NS 0.9% 100 ML* 100 ML IVPB SCH (09:00)
[2017-11-12] MEDS ORDERED: KCL 20 MEQ/100 ML IVPREMIX* 40 MEQ/200 ML BAG ONE (09:21)
[2017-11-12] MEDS: Vancomycin(*) 1,000 MG in NS 0.9% 250 ML* 250 ML IVPB SCH (09:23)
[2017-11-12] MEDS: KCL 20 MEQ/100 ML IVPREMIX* 20 MEQ/100 ML BAG IV SCH ×2 (09:24→11:14)
--- NOTE | 2017-11-12 10:15 | PN ---
Progress Note - Progress Note Date of Service: 11/11/17 Note: Right leg cellulitis better, erythema+ but less red. no fevers. wbc normal. resting comfortably.
--- NOTE | 2017-11-12 10:23 | PN ---
Progress Note - Progress Note Date of Service: 11/12/17 Note: Progress Note -- Critical Care 24 hour events: -no events overnight; states no pain/sob/cp -afebrile -diarrhea+ overnight Tele: nsr Vitals: Vital Signs Temp 98.4 F 11/12/17 07:37 Pulse 88 11/12/17 10:00 Resp 14 11/12/17 10:00 BP 155/81 11/12/17 10:00 Pulse Ox 96 11/12/17 10:00 Intake & Output 11/11/17 11/12/17 11/12/17 18:59 06:59 18:59 Intake Total 405.8 1690 Output Total 680 845 210 Balance -274.2 845 -210 Weight 100.244 kg 102.5 kg Intake: IV Fluids 22.6 1054 NS (0.9%) 22.6 1054 IVPB 386 NS (0.9%) 386 Medicated IV 383.2 250 Vanco 302 250 potassium chloride 81.2 Output: Stephenson 680 805 210 Liquid Stool 40 Other: Date of Last Bowel 11/11/17 Movement # Bowel Movements 1 Estimated Stool Amount Small O2/Vent: RA Infusions: NS 100cc/hr Current Medications: Acetaminophen (Tylenol Tab*) 650 mg PO Q4H PRN PRN Reason: FEVER/PAIN Famotidine (Pepcid Iv*) 20 mg IV SLOW PU DAILY [facility] Last Admin: 11/12/17 08:42 Dose: 20 mg Haloperidol Lactate (Haldol Inj Iv/Im*) 5 mg IV SLOW PU Q6H PRN PRN Reason: AGITATION Last Admin: 11/12/17 00:52 Dose: 5 mg Heparin Sodium (Porcine) (Heparin Vial(*)) 5,000 units SUBCUT Q12H [facility] Hydralazine HCl (Apresoline Iv*) 10 mg IV Q4H PRN PRN Reason: Systolic >170 Last Admin: 11/12/17 05:51 Dose: 10 mg Sodium Chloride (Ns 0.9% 1000 Ml*) 1,000 mls @ 100 mls/hr IV PER RATE [facility] Last Admin: 11/12/17 05:49 Dose: 100 mls/hr Piperacillin Sod/Tazobactam (Sod 3.375 gm/ Sodium Chloride) 100 mls @ 25 mls/ hr IVPB Q8H [facility] Last Admin: 11/12/17 05:51 Dose: 25 mls/hr Potassium Chloride (Potassium Chloride 20 Meq/100 Ml Ivpremix*) 20 meq in 100 mls @ 50 mls/hr IV Q2H [facility] Stop: 11/12/17 13:59 Last Admin: 11/12/17 09:24 Dose: 50 mls/hr Vancomycin HCl 1,000 mg/ (Sodium Chloride) 250 mls @ 166.667 mls/hr IVPB Q8H [facility]; Protocol Lorazepam (Ativan Inj*) 1 mg IV PUSH Q6H PRN PRN Reason: Anxiety/Agitation Last Admin: 11/11/17 10:42 Dose: 1 mg Pharmacy Consult (Zosyn Per Pharmacy*) 1 note FOLLOW UP .ZOSYN PER PHARMACY [facility] Pharmacy Profile Note (Vancomycin Trough Check) 1 note FOLLOW UP .ENTER TIME ONE Stop: 11/13/17 17:01 Physical Exam: General: awake, alert, no distress, no diaphoresis Head: normocephalic, atraumatic HEENT: no pallor, no icterus, moist mucous membranes Neck: soft, supple, no stridor CVS: normal rate, regular, no murmur Resp: bilateral air entry, no rhales/wheeze/rhonchi, no acc muscle use Abdomen: soft, distended, nontender, tympanic, bowel sounds present Ext: pulses+; right LE erythema improved from lower leg to mid-upper thigh, minimal tenderness, no crepitus, blanchable, pulses+ b/l, able to move ext without restriction. Skin: intact, no wound noted. right leg erythema as above Neuro: awake, alert, orientedx1, moving all extremities, no gross focal deficit Labs: Laboratory Results - last 24 hr 11/11/17 11/12/17 11/12/17 11:40 07:29 07:29 WBC 14.7 H RBC 4.06 Hgb 13.3 L Hct 37 L MCV 92 MCH 33 H MCHC 36 RDW 13 Plt Count 133 L MPV 8.5 Neut % (Auto) 91.4 H Lymph % (Auto) 3.3 L [place] % (Auto) 4.4 Eos % (Auto) 0 Baso % (Auto) 0.9 Absolute Neuts (auto) 13.5 H Absolute Lymphs (auto) 0.5 L Absolute Monos (auto) 0.6 Absolute Eos (auto) 0 Absolute Basos (auto) 0.1 Absolute Nucleated RBC 0 Nucleated RBC % 0.2 Sodium 141 Potassium 2.9 L Chloride 110 Carbon Dioxide 24 Anion Gap 7 BUN 23 Creatinine 0.76 Est GFR ( Amer) 119.1 Est GFR (Non-Af Amer) 98.4 BUN/Creatinine Ratio 30.3 H Glucose 163 H Lactic Acid 0.8 Calcium 8.2 L Total Bilirubin 1.00 AST 41 H ALT 22 Alkaline Phosphatase 71 Total Protein 5.3 L Albumin 3.1 L Globulin 2.2 Albumin/Globulin Ratio 1.4 Vancomycin Trough 11/12/17 07:29 WBC RBC Hgb Hct MCV MCH MCHC RDW Plt Count MPV Neut % (Auto) Lymph % (Auto) [place] % (Auto) Eos % (Auto) Baso % (Auto) Absolute Neuts (auto) Absolute Lymphs (auto) Absolute Monos (auto) Absolute Eos (auto) Absolute Basos (auto) Absolute Nucleated RBC Nucleated RBC % Sodium Potassium Chloride Carbon Dioxide Anion Gap BUN Creatinine Est GFR ( Amer) Est GFR (Non-Af Amer) BUN/Creatinine Ratio Glucose Lactic Acid Calcium Total Bilirubin AST ALT Alkaline Phosphatase Total Protein Albumin Globulin Albumin/Globulin Ratio Vancomycin Trough 6.9 Imaging: cxr 11/10 - no infiltrate/effusion CT brain 11/10 - no acute process LE venous duplex 11/10 - no dvt Assessment: 82y M pmhx HTN, HLD, Dementia; patient comes to ER for fatigue, lethargy. He was confused as per caregiver and lethargic at home in the morning. Difficult to obtain history from patient due to dementia. In ER, tmax 100.6, tachycardic 90+, BP >100, sats 91%. He was found to have elevated WBC and ERIN and LA 4.0, next 4.7. He was started on a sepsis protocol. -Septic Shock; now severe sepsis; off pressors -Right leg Cellulitus -abdominal distension -ERIN -Delirium on Dementia -NSTEMI, type 2 suspected, demand from sepsis Plan: Neuro- baseline dementia. Haldol IV PRN. avoid bdz, Delirium prec. CVS- BP stable, tachycardia resolved. Dec NS 50cc/hr. IV abx. EKG 11/[address]/t changes; likely NSTEMI type 2 due to underlyign sepsis/demand. Resp- no resp distress, on RA ID- tmax 98-99, wbc 24->14, improving. Right leg cellulitus+ improving erythema , no crepitus or increased pain. Blood cultures neg so far. Cover gram positive organisms and anerobes, Cont IV zosyn (day#3) and Vanco (day#3) GI- distended abdomen+, no nausea/vom. diarrhea+ overnight. some blood from bowel movement with bright red. will monitor, may need GI eval if continued. CT abd/pelvis colon distension only. start clear liquid diet. Renal- ERIN, Cr better, urine output+; improved. Replete IV/PO KCL. Dec NS 50cc/ hr Heme- hg stable. plt stable. DVT proph chemical; no SCD on right leg. Endo- fingerstick as needed. Musculsk- pressure ulcer prophylaxis. Bedrest. Wounds- none; keep right leg elevated. Nutrition- cardiac diet DVT prophylaxis: heparin sq GI prophylaxis: pepcid Central Line: - Arterial Line: - Stephenson Cathetor: delbert Disposition: transfer to medical floor; discussed with hospitalist Code Status: DNR Ramin Garg MD [employer] (Electronically Signed)
[2017-11-12] MEDS ORDERED: NS 0.9% 1000 ML* 1,000 ML IV SCH (10:30)
--- NOTE | 2017-11-12 13:44 | RAD ---
HISTORY: Please evaluate abdomen for possible obs COMPARISONS: CT dated November 11, 2017 VIEWS: Frontal supine and left lateral decubitus views of the abdomen. FINDINGS: BOWEL: There is distention without dilatation of small bowel. There is gaseous distention of the large bowel. CALCULI: There are no abnormal calculi. BONES AND SOFT TISSUES: Degenerative changes are noted of the spine. OTHER FINDINGS: The lung bases are clear. There is no subphrenic gas. IMPRESSION: GASEOUS DISTENTION OF THE SMALL BOWEL AND LARGE BOWEL WITHOUT DILATATION, SUGGESTIVE OF ILEUS, THOUGH EARLY OBSTRUCTION IS WITHIN THE DIFFERENTIAL. RECOMMEND ATTENTION ON FOLLOW-UP IMAGING.
--- NOTE | 2017-11-12 13:54 | PN ---
Subjective Date of Service: 11/12/17 Interval History: Pt seen and examined. Meds and labs reviewed. CC: NA ROS: Denied FINNEY/dizziness, F/C, N/V, CP, SOB, increased cough, sputum production , abd pain, diarrhea, constipation, dysuria, myalgias, arthralgias, throat pain , and new skin lesions. The rest of the 14 point ROS are unremarkable. PHYSICAL EXAM: GEN APPEARANCE: Asleep, arousable, not in acute distress HEENT: NC/AT, PERRLA, moist oral mucosa, (-) throat erythema NECK: Soft, supple, (-) cervical LAD, (-)JVD HEART: S1S2 WNL, RRR, No MRG CHEST: CTA, BL, GAE, No W/R/R ABD: Soft, slightly distended/NT, tympanitic to percussion, olivia-laterally, NABS 4x Q EXT: No C/C/RLE cellulitis improved, erythema and edema almost resolved SKIN: Warm to touch PSYCH: No active psychosis, hallucinations, depression, SI/HI Family History: Unchanged from Admission Social History: Unchanged from Admission Past Medical History: Unchanged from Admission Objective Active Medications: Acetaminophen (Tylenol Tab*) 650 mg PO Q4H PRN PRN Reason: FEVER/PAIN Famotidine (Pepcid Iv*) 20 mg IV SLOW PU DAILY [facility] Last Admin: 11/12/17 08:42 Dose: 20 mg Haloperidol Lactate (Haldol Inj Iv/Im*) 5 mg IV SLOW PU Q6H PRN PRN Reason: AGITATION Last Admin: 11/12/17 11:57 Dose: 5 mg Heparin Sodium (Porcine) (Heparin Vial(*)) 5,000 units SUBCUT Q12H [facility] Last Admin: 11/12/17 11:08 Dose: 5,000 units Hydralazine HCl (Apresoline Iv*) 10 mg IV Q4H PRN PRN Reason: Systolic >170 Last Admin: 11/12/17 05:51 Dose: 10 mg Piperacillin Sod/Tazobactam (Sod 3.375 gm/ Sodium Chloride) 100 mls @ 25 mls/ hr IVPB Q8H [facility] Last Admin: 11/12/17 05:51 Dose: 25 mls/hr Potassium Chloride (Potassium Chloride 20 Meq/100 Ml Ivpremix*) 20 meq in 100 mls @ 50 mls/hr IV Q2H [facility] Stop: 11/12/17 13:59 Last Admin: 11/12/17 11:14 Dose: 50 mls/hr Vancomycin HCl 1,000 mg/ (Sodium Chloride) 250 mls @ 166.667 mls/hr IVPB Q8H [facility]; Protocol Sodium Chloride (Ns 0.9% 1000 Ml*) 1,000 mls @ 50 mls/hr IV PER RATE [facility] Lorazepam (Ativan Inj*) 1 mg IV PUSH Q6H PRN PRN Reason: Anxiety/Agitation Last Admin: 11/11/17 10:42 Dose: 1 mg Pharmacy Consult (Zosyn Per Pharmacy*) 1 note FOLLOW UP .ZOSYN PER PHARMACY [facility] Pharmacy Profile Note (Vancomycin Trough Check) 1 note FOLLOW UP .ENTER TIME ONE Stop: 11/13/17 17:01 Vital Signs - 8 hr 11/12/17 11/12/17 11/12/17 06:00 07:00 07:31 Temperature Pulse Rate 85 86 87 Respiratory 15 17 14 Rate Blood Pressure 153/76 (mmHg) O2 Sat by Pulse 94 94 100 Oximetry 11/12/17 11/12/17 11/12/17 07:37 08:00 09:00 Temperature 98.4 F Pulse Rate 84 90 Respiratory 14 17 Rate Blood Pressure 174/70 (mmHg) O2 Sat by Pulse 100 94 Oximetry 11/12/17 11/12/17 11/12/17 09:01 10:00 11:00 Temperature Pulse Rate 88 88 85 Respiratory 16 14 16 Rate Blood Pressure 150/87 155/81 (mmHg) O2 Sat by Pulse 94 96 96 Oximetry 11/12/17 11/12/17 11/12/17 12:05 12:45 13:00 Temperature 98.6 F Pulse Rate 82 80 Respiratory 15 12 Rate Blood Pressure 156/75 (mmHg) O2 Sat by Pulse 85 77 Oximetry Oxygen Devices in Use Now: None Result Diagrams: 11/12/17 07:29 11/12/17 07:29 Microbiology and Other Data: Microbiology 11/12/17 12:30 Stool Gross Appearance - Final Stool Stool Occult Blood (ISAURA) - Final 11/10/17 12:17 Aerobic Blood Culture - Preliminary Blood Venous No Growth Day 2 Anaerobic Blood Culture - Preliminary No Growth Day 2 11/10/17 12:07 Aerobic Blood Culture - Preliminary Blood Venous No Growth Day 2 Anaerobic Blood Culture - Preliminary No Growth Day 2 11/10/17 14:27 Urine Culture - Final Urine No Growth (<1,000 CFU/mL) 11/10/17 16:20 Nasal Screen MRSA (PCR) - Final Nasal Mrsa Not Detected Assess/Plan/Problems-Billing Assessment: Mr Coates is an 82yo M with PMH of HTN, HLD, dementia, who presented to ED with fever, confusion, found to have severe sepsis/septic shock secondary to RLE cellulitis. - Patient Problems (1) Septic shock Current Visit: Yes Status: Acute Code(s): A41.9 - SEPSIS, UNSPECIFIED ORGANISM; R65.21 - SEVERE SEPSIS WITH SEPTIC SHOCK SNOMED Code(s): 93167206 Comment: -Resolved -Source is RLE cellulitis. (2) Cellulitis Current Visit: Yes Status: Acute Code(s): L03.90 - CELLULITIS, UNSPECIFIED SNOMED Code(s): 587471637 Comment: -Blood Cultures (-) x 2 days - Continue Vancomycin and Zosyn, day #2 (3) BRBPR (bright red blood per rectum) Current Visit: Yes Status: Acute Code(s): K62.5 - HEMORRHAGE OF ANUS AND RECTUM SNOMED Code(s): 198104138 Comment: - Badome is distended, but not tender. - May have ischemic colitis in the setting of septic shock - CT abd/pelvis along with distention suggests fluid filled large bowel likely due to diarrhea -Awaiting official result of AXR today (4) Delirium Current Visit: Yes Status: Acute Code(s): R41.0 - DISORIENTATION, UNSPECIFIED SNOMED Code(s): 0069850 Comment: - Secondary to sepsis on top of dementia. - Continue Haldol as needed. Avoid benzos. (5) ERIN (acute kidney injury) Current Visit: Yes Status: Acute Code(s): N17.9 - ACUTE KIDNEY FAILURE, UNSPECIFIED SNOMED Code(s): 74674036 Comment: - Secondary to sepsis. - Improved. - Continue IVF. (6) Lactic acidosis Current Visit: Yes Status: Acute Code(s): E87.2 - ACIDOSIS SNOMED Code(s) : 32227329 Comment: - Resolved. (7) Elevated troponin Current Visit: Yes Status: Acute Code(s): R74.8 - ABNORMAL LEVELS OF OTHER SERUM ENZYMES SNOMED Code(s): 841248566 Comment: - Secondary to demand ischemia. - Troponins are trending down. - Check echo to r/o wall motion abnormalities. (8) DVT prophylaxis Current Visit: Yes Status: Acute Code(s): RSQ6465 - SNOMED Code(s): 135029731 Comment: -Changed Heparin SQ to q12h given advanced age Status and Disposition: -For transfer to /[facility] -Discussed above with Dr. Faustin, charge and patient RNs
[2017-11-12] MEDS ORDERED: NS 0.9% 100 ML* 100 ML ONE (22:18)
[2017-11-12] MEDS: LORazepam INJ* 2 MG/ML 1 ML VIAL IV PUSH PRN (22:25)
[2017-11-13] MEDS: Vancomycin(*) 1,000 MG in NS 0.9% 250 ML* 250 ML IVPB SCH ×5 (01:09→22:04)
[2017-11-13 06:20] LABS: ABS Basophils 0 10^3/ul (0-0.2); ABS Eosinophils 0 10^3/ul (0-0.6); ABS Lymphocytes 0.7 10^3/ul (1.0-4.8); ABS Monocytes 0.5 10^3/ul (0-0.8); ABS Neutrophils 8.1 10^3/ul (1.5-7.7); ABS Nucleated RBC 0 10^3/ul; Eosinophil % 0.2 % (0-6); Hematocrit 35 % (42-52); Hemoglobin 12.8 g/dl (14.0-18.0); Lymphocyte % 7.7 % (25-47); Mean Corpuscular HGB Conc 36 g/dl (31-36); Mean Corpuscular Hemoglobin 34 pg (27-31); Mean Corpuscular Volume 92 fL (80-94); Mean Platelet Volume 8.7 um3 (7.4-10.4); Nucleated Red Blood Cells % 0; Platelet Count 148 10^3/ul (150-450); Red Blood Count 3.83 10^6/ul (4.00-5.40); Red Cell Distribution Width 13 % (10.5-15); White Blood Count 9.4 10^3/ul (3.5-10.8)
[2017-11-13] MEDS ORDERED: Potassium Phosphate IV* 30 MMOLE in NS 0.9% 250 ML* 250 ML IVPB ONE (08:00)
[2017-11-13] MEDS ORDERED: NS 0.9% 1000 ML* 1,000 ML IV SCH ×2 (08:15→14:14)
[2017-11-13] MEDS: Famotidine IV* 10 MG/ML 2 ML (20 mg) IV SLOW PU SCH (08:34)
[2017-11-13] MEDS: ZOSYN 3.375 GM Q8H per EXTENDED INFUSION IVPB SCH ×6 (08:37→23:52)
--- NOTE | 2017-11-13 09:45 | RAD ---
HISTORY: Ileus surveillance COMPARISONS: November 12, 2017 VIEWS: Frontal views and left lateral decubitus views of the abdomen. FINDINGS: BOWEL: Again noted is diffuse gaseous distention of the small bowel and large bowel without dilatation. This is similar to the previous examination. CALCULI: There are no abnormal calculi. BONES AND SOFT TISSUES: Mild degenerative changes are noted. OTHER FINDINGS: The lung bases are clear. There is no subphrenic gas. IMPRESSION: PERSISTENT DIFFUSE GASEOUS DISTENTION OF THE SMALL BOWEL AND LARGE BOWEL WITHOUT DILATATION CONSISTENT WITH ILEUS, THOUGH EARLY OBSTRUCTION IS STILL WITHIN THE DIFFERENTIAL. RECOMMEND CONTINUED ATTENTION ON FOLLOW-UP EXAMINATION.
--- NOTE | 2017-11-13 10:48 | PN ---
Subjective Date of Service: 11/13/17 Interval History: Pt seen and examined. Meds and labs reviewed. CC: N/A ROS: Denied FINNEY/dizziness, F/C, N/V, CP, SOB, increased cough, sputum production , abd pain, diarrhea, constipation, dysuria, myalgias, arthralgias, throat pain , and new skin lesions. The rest of the 14 point ROS are unremarkable. PHYSICAL EXAM: GEN APPEARANCE: Awake, not in acute distress, obese HEENT: NC/AT, PERRLA, moist oral mucosa, (-) throat erythema NECK: Soft, supple, (-) cervical LAD, (-)JVD HEART: S1S2 WNL, RRR, No MRG CHEST: CTA, BL, GAE, No W/R/R ABD: Soft, distended/NT, tympanitic to percussion, olivia-laterally, mildly hypoactive 4x Q EXT: No C/C/RLE cellulitis improved, erythema and edema almost resolved SKIN: Warm to touch PSYCH: No active psychosis, hallucinations, depression, SI/H Family History: Unchanged from Admission Social History: Unchanged from Admission Past Medical History: Unchanged from Admission Objective Active Medications: Acetaminophen (Tylenol Tab*) 650 mg PO Q4H PRN PRN Reason: FEVER/PAIN Famotidine (Pepcid Iv*) 20 mg IV SLOW PU DAILY [facility] Last Admin: 11/13/17 08:34 Dose: 20 mg Haloperidol Lactate (Haldol Inj Iv/Im*) 5 mg IV SLOW PU Q6H PRN PRN Reason: AGITATION Last Admin: 11/12/17 11:57 Dose: 5 mg Heparin Sodium (Porcine) (Heparin Vial(*)) 5,000 units SUBCUT Q12H [facility] Last Admin: 11/12/17 22:52 Dose: 5,000 units Hydralazine HCl (Apresoline Iv*) 10 mg IV Q4H PRN PRN Reason: Systolic >170 Last Admin: 11/12/17 05:51 Dose: 10 mg Piperacillin Sod/Tazobactam (Sod 3.375 gm/ Sodium Chloride) 100 mls @ 25 mls/ hr IVPB Q8H [facility] Last Admin: 11/13/17 08:37 Dose: 25 mls/hr Vancomycin HCl 1,000 mg/ (Sodium Chloride) 250 mls @ 166.667 mls/hr IVPB Q8H [facility]; Protocol Last Admin: 11/13/17 06:37 Dose: Not Given Potassium Phosphate 30 mmole/ (Sodium Chloride) 260 mls @ 42 mls/hr IVPB ONCE ONE Stop: 11/13/17 14:11 Sodium Chloride (Ns 0.9% 1000 Ml*) 1,000 mls @ 75 mls/hr IV PER RATE [facility] Last Admin: 11/13/17 08:41 Dose: 75 mls/hr Lorazepam (Ativan Inj*) 1 mg IV PUSH Q6H PRN PRN Reason: Anxiety/Agitation Last Admin: 11/12/17 22:25 Dose: 1 mg Pharmacy Consult (Zosyn Per Pharmacy*) 1 note FOLLOW UP .ZOSYN PER PHARMACY [facility] Vital Signs - 8 hr 11/13/17 05:36 Respiratory 18 Rate Oxygen Devices in Use Now: None Result Diagrams: 11/13/17 05:44 11/13/17 05:44 Microbiology and Other Data: Microbiology 11/12/17 12:30 Stool Gross Appearance - Final Stool Stool Occult Blood (ISAURA) - Final 11/10/17 12:17 Aerobic Blood Culture - Preliminary Blood Venous No Growth Day 2 Anaerobic Blood Culture - Preliminary No Growth Day 2 11/10/17 12:07 Aerobic Blood Culture - Preliminary Blood Venous No Growth Day 2 Anaerobic Blood Culture - Preliminary No Growth Day 2 11/10/17 14:27 Urine Culture - Final Urine No Growth (<1,000 CFU/mL) 11/10/17 16:20 Nasal Screen MRSA (PCR) - Final Nasal Mrsa Not Detected Assess/Plan/Problems-Billing Assessment: Mr Coates is an 82yo M with PMH of HTN, HLD, dementia, who presented to ED with fever, confusion, found to have severe sepsis/septic shock secondary to RLE cellulitis. - Patient Problems (1) Ileus Current Visit: Yes Status: Acute Code(s): K56.7 - ILEUS, UNSPECIFIED SNOMED Code(s): 051777857 Comment: -vs obstruction -Worsening with clear liquids and IVFtherefore will make pt NPO except meds with intermittent clamping -Place NGT to mild suction -Continue IVFs -Will await any further recommendations from Dr. Colvin -For repeat AXR in AM (2) Cellulitis Current Visit: Yes Status: Acute Code(s): L03.90 - CELLULITIS, UNSPECIFIED SNOMED Code(s): 297037366 Comment: -Blood Cultures (-) x 2 days - Continue Vancomycin and Zosyn, day #3 (3) BRBPR (bright red blood per rectum) Current Visit: Yes Status: Acute Code(s): K62.5 - HEMORRHAGE OF ANUS AND RECTUM SNOMED Code(s): 865181420 Comment: - Abdomen is distended, but not tender. - May have ischemic colitis in the setting of septic shock vs hemorrhoids? - CT abd/pelvis along with distention suggests fluid filled large bowel likely due to diarrhea -H&H stable (4) Delirium Current Visit: Yes Status: Acute Code(s): R41.0 - DISORIENTATION, UNSPECIFIED SNOMED Code(s): 1488929 Comment: - Secondary to sepsis on top of dementia. - Continue Haldol as needed. Avoid benzos. (5) ERIN (acute kidney injury) Current Visit: Yes Status: Acute Code(s): N17.9 - ACUTE KIDNEY FAILURE, UNSPECIFIED SNOMED Code(s): 11615953 Comment: - Secondary to sepsis. - Improved. - Continue IVF. (6) Elevated troponin Current Visit: Yes Status: Acute Code(s): R74.8 - ABNORMAL LEVELS OF OTHER SERUM ENZYMES SNOMED Code(s): 921083321 Comment: - Secondary to demand ischemia. - Troponins are trending down. - Check echo to r/o wall motion abnormalities. (7) DVT prophylaxis Current Visit: Yes Status: Acute Code(s): OZQ5631 - SNOMED Code(s): 168297106 Comment: -Continue Heparin SQ Status and Disposition: -For PT eval
[2017-11-13] MEDS: Haloperidol INJ IV/IM* 5 MG/ML AMP IV SLOW PU PRN (12:40)
[2017-11-13] MEDS: Heparin VIAL(*) 5000 UNITS/ML VIAL (FIVE THOUSAND) SUBCUT SCH ×2 (12:42→22:05)
[2017-11-13] MEDS: LORazepam INJ* 2 MG/ML 1 ML VIAL IV PUSH PRN (13:56)
--- NOTE | 2017-11-13 15:16 | PN ---
Progress Note - Progress Note Date of Service: 11/13/17 SOAP: Subjective: I reviewed medical record, examined the patient and reviewed radiology studies Care also discussed with RAMON Santizo who also saw patient He is having daily loose bowel movements and does not appear to be having abdominal pain. Objective: Temp Pulse Resp BP Pulse Ox 98.3 F 81 18 157/64 95 11/13/17 11:31 11/13/17 11:31 11/13/17 13:56 11/13/17 11:31 11/13/17 11:31 PEX Abd is distended and tympanitic. Bowel sounds are not present. He has recently received IV sedation for agitation but there is no abdominal tenderness exhibited on palpation Assessment: Abdominal distension Sepsis-apparently secondary to right lower leg cellulitis, improving Plan: I feel clinical picture most likely represents an ileus without evidence for obstruction. This is most likely secondary to the sepsis and immobility and should resolve with time and present treatment. I would not place NGT at this point-he is not vomiting and with his present level of mentation he will most likely remove it himself. Surgery will follow-ice chips po only for now, increase activity as tolerated.
--- NOTE | 2017-11-13 15:30 | ECHO ---
Patient: YUE DUONG [facility] Rec#: [id number] : 1935 Date: 11/13/2017 Age: 82y Height: 175.26 cm / 69.0 in Weight: 100.24 kg / 220.9 lbs Sex: M BSA: 2.16 Room#: 437 Admit Date#: 11/10/2017 Type: Inpatient Referring: Marjorie Stoll MD Reading: Neo Eaton MD Booster Assembler: Octavia Menjivar MARA CC: Shae Maddox MD Transthoracic Echocardiogram Indication: Sepsis BP: 147/67 HR: 78 Rhythm: NSR Findings History: HTN,HLD,dementia. Technical Comments: The study quality is good. Completed at 1405. Left Ventricle: The left ventricular chamber size is normal. Global left ventricular wall motion and contractility are within normal limits. There is normal left ventricular systolic function. The estimated ejection fraction is 55-60%. Abnormal left ventricular diastolic function is observed. Left Atrium: The left atrium is mildly dilated. Right Ventricle: The right ventricular cavity size is normal. The right ventricular global systolic function is normal. Right Atrium: The right atrial cavity size is normal. Aortic Valve: The aortic valve leaflets are mildly thickened. Systolic excursion of the aortic valve is normal. There is mild aortic regurgitation. There is no evidence of aortic stenosis. Mitral Valve: The mitral valve leaflets appear normal. There is mild mitral regurgitation. There is no evidence of mitral stenosis. Tricuspid Valve: The tricuspid valve leaflets are normal. There is no evidence of tricuspid valve regurgitation. Unable to estimate the right ventricular systolic pressure. There is no tricuspid stenosis. Pulmonic Valve: The pulmonic valve appears normal. There is no evidence of pulmonic regurgitation. There is no pulmonic stenosis. Pericardium: A pericardial fat pad is visualized. Aorta: There is mild dilatation of the ascending aorta. The aortic arch is not well visualized. There is mild dilatation of the aortic root. Pulmonary Artery: The main pulmonary artery appears normal. Venous: The venous system is not well visualized. Summary: There was not any prior study for comparison. Conclusions Global left ventricular wall motion and contractility are within normal limits. There is normal left ventricular systolic function. The estimated ejection fraction is 55-60%. The right ventricular global systolic function is normal. There is mild aortic regurgitation. There is no evidence of aortic stenosis. There is mild mitral regurgitation. There is no evidence of tricuspid valve regurgitation. There is mild dilatation of the ascending aorta. Measurements Name Value Normal Range RVIDd (AP) 2D 2.9 cm (0.9 - 2.6) RVDdMajor (2D) 4.2 cm (2.2 - 4.4) RAd ISD 4CH 4.8 cm (3.4 - 4.9) RA (A4C)W 3.3 cm (2.9 - 4.6) IVSd (2D) 1 cm (0.6 - 1) LVPWd (2D) 1 cm (0.6 - 1) LVIDd (2D) 4.9 cm (3.6 - 5.4) LVIDs (2D) 3.2 cm - LV FS (2D) 35 % (25 - 45) Aortic Annulus 2 cm (1.4 - 2.6) Ao root diameter (2D) 3.6 cm (2.1 - 3.5) Ascending Ao 3.7 cm (2.1 - 3.4) LA dimension (AP) 2D 3.9 cm (2.3 - 3.8) LAd ISD 4CH 5.2 cm (2.9 - 5.3) LA ISD 4CH W 3.1 cm (2.5 - 4.5) Name Value Normal Range LA ESV SP 4CH (A/L) 29 ml - LA ESV SP 2CH (A/L) 52 ml - LA ESV BP (A/L) 41 ml - LA ESV BP (A/L) index 18.86 ml/m2 - LA ESV SP 4CH (MOD) 28 ml - LA ESV SP 2CH (MOD) 49 ml - Name Value Normal Range MV E-wave Vmax 0.8 m/sec - MV deceleration time 212 msec - MV A-wave Vmax 1.2 m/sec - MV E:A ratio 0.63 ratio - LV septal e' Vmax 0.06 m/sec - LV lateral e' Vmax 0.08 m/sec - LV E:e' septal ratio 13.33 ratio - LV E:e' lateral ratio 10 ratio - Name Value Normal Range AV Vmax 1.5 m/sec - AV VTI 35.8 cm - AV peak gradient 9.48 mmHg - AV mean gradient 5.44 mmHg - LVOT diameter 2 cm - LVOT Vmax 1.2 m/sec - LVOT VTI 25.6 cm - LVOT peak gradient 6.12 mmHg - LVOT mean gradient 2.69 mmHg - AR PHT 349 msec - AR peak gradient 36.7 mmHg - Name Value Normal Range PV Vmax 0.9 m/sec - PV peak gradient 2.94 mmHg -
[2017-11-13] MEDS ORDERED: Vancomycin Trough Check NOTE FOLLOW UP ONE (17:00)
--- NOTE | 2017-11-13 19:55 | CONS ---
CC: Dr. Morillo.. CONSULTATION REPORT: DATE OF CONSULT: 11/13/17 PATIENT OF: Dr. Ricky Morillo REFERRED TO: Dr. Sravan Colvin DATE OF ADMISSION: 11/10/17 CHIEF COMPLAINT: Altered mental status. REASON FOR CONSULTATION: Abdominal distention and concern for ileus versus bowel obstruction. HISTORY OF PRESENT ILLNESS: Mr. Coates is an 82-year-old gentleman who was admitted to the hospital on 11/10/17, with what appeared to be severe sepsis. The patient presented to the emergency room back then after he was noted to be "not being himself." He was not behaving at his normal daily mental status. He was not able to give any history at that time. He has history of severe advanced dementia and had extensive workup in the emergency room that revealed marked leukocytosis with white count of 27,000 as well as evidence of lactic acidosis consistent with severe sepsis. The patient end up being admitted to the intensive care unit and he had fluid resuscitation at their septic protocol and it was thought that his fever and sepsis was likely secondary to right lower extremity streptococcal cellulitis. The patient eventually got better over the past couple of days and was transferred to the telemetry unit. He had a CT scan of the abdomen and pelvis the day after his admission that revealed fluid-filled colon that can be seen in diarrheal illness. I have noticed the patient had stool studies done including C. diff that was essentially negative. The patient continued to have liquid stools averaging 1 episode on a daily basis, but also continued to have abdominal distention. The patient did not provide me with much history given his demented state, but he tells me that he occasionally have pain on the left lower quadrant. He denied any nausea or vomiting. He was eating normal diet up till yesterday and now he is n.p.o. He had a followup abdominal films this morning that was consistent with air- filling small bowel and colon with no transition zone noted, which indicate probable ileus. It is not clear if the patient had any colonoscopy in the past, however, I would look up the record and see if he did. We were asked to see the patient for further evaluation of abdominal distention and the possibility of ileus versus a small bowel obstruction. PAST MEDICAL HISTORY: As mentioned above, significant for recent severe sepsis during this admission and thought to be secondary to right lower extremity cellulitis. He also has history of hypertension, hyperlipidemia, and advanced dementia. PAST SURGICAL HISTORY: Significant for laparoscopic cholecystectomy 6 years ago at [facility]. He also had a right inguinal hernia repaired in the remote past. CURRENT MEDICATION: His medication prior to this admission included: 1. Acetaminophen 650 mg p.o. q.4 hours as needed for pain or fever. 2. Atorvastatin 40 mg p.o. q.h.s. 3. Robitussin 10 mL syrup p.o. q.6 hours as needed for cough. 4. Lisinopril 20 mg p.o. daily. 5. Melatonin 5 mg p.o. q.h.s. 6. Paroxetine 20 mg p.o. daily. 7. Risperdal 0.5 mg p.o. t.i.d. plus 0.5 mg p.o. daily as needed for agitation. ALLERGIES: He has no known drug allergies. FAMILY HISTORY: Unable to obtain. SOCIAL HISTORY: The patient resided at [facility]. He did not answer my question about smoking or alcohol intake. According to records his surrogate decision maker is his daughter Paradise El with phone number on record. REVIEW OF SYSTEMS: Unable to obtain as the patient refuses to answer most of the questions. PHYSICAL EXAMINATION: General: He is an older gentleman, lying comfortably on his bed and in no acute distress or discomfort at the time of consultation. Vitals: Most recent set of vitals was temperature of 99, pulse of 77, respiration of 14 with O2 sat of 95% on room air, blood pressure of 165/77. HEENT: Head is normocephalic, atraumatic. Sclerae anicteric. PERRLA. EOMs intact. Oropharynx is pink and moist. Neck: Supple. Trachea midline. No cervical, adenopathy, thyromegaly, or JVD. Lungs: Clear to auscultation bilaterally. Heart: Regular rate and rhythm. Normal S1 and S2 without rubs, murmurs, or gallops. Back: With normal curvature. No CVA tenderness. Abdomen : Soft and moderately distended. There is a mild left lower quadrant tenderness noted on palpation. There is a tympany on exam, but no guarding, rigidity or rebound tenderness. No hernias, masses or hepatosplenomegaly. Bowel sounds were hypoactive throughout. Extremities: No edema. Neurologic: Grossly intact. He is awake, alert and oriented to self only. Rectal Exam: Attempt rectal exam, discussed with the patient; however, he denied at this time. IMPRESSION: An elderly gentleman who was admitted 2 days ago with what appeared to be severe sepsis secondary to right lower extremity and cellulitis, as well as lactic acidosis, severe dementia and was found on followup abdominal films today to have air filling the small bowel and colon diffusely with questionable ileus versus early bowel obstruction. ASSESSMENT AND PLAN: At this point, given his health status and demented state of mind, the patient will benefit from an nasogastric tube decompression. He does not appear to have any obvious transition point on a CT scan to suggest bowel obstruction. He also continued to have liquid stools on a daily basis. It is possible that his ileus could be infectious in nature; however, stool cultures and clostridium difficile, salmonella came back negative. There is also the element of his age and being non-active. He has been only getting out of his bed to use the bathroom and has not been ambulating much since his admission. The case will be discussed with Dr. Colvin, but at this juncture I would recommend conservative measures and attempt nasogastric tube decompression for symptomatic relief. He can be n.p.o. except for meds and ice chips from a diet standpoint. Repeat labs and abdominal film tomorrow to document possible resolution. Again, I will discuss the case with my attending for further recommendation regarding his care. Thank you for this consultation. RAMON MITCHELL [id number]/[facility] #: [id number] CATHERINE
--- NOTE | 2017-11-13 23:33 | PN ---
Progress Note - Progress Note Date of Service: 11/13/17 Note: CAT response Upon arrival at start of shift, Mr Coates was a CAT call for sudden onset SVT in the 190s. He has AMS/confusion at baseline 2nd dementia and was asymptomatic. Prior to administration of adenosine, he spontaneously converted to sinus rhythm with a rate ~100. BP at that time was systolic 150s. He was given 5mg IV metoprolol immediately after which he had another brief run of SVT in the 160s lasting only 3-4 seconds before spontaneously returning to sinus rhythm. He continued to remain asymptomatic and manifested no further arrhythmia after a brief period of bedside monitoring.
[2017-11-14] MEDS: LORazepam INJ* 2 MG/ML 1 ML VIAL IV PUSH PRN (01:58)
[2017-11-14 05:21] LABS: Hematocrit 36 % (42-52); Hemoglobin 12.5 g/dl (14.0-18.0); Mean Corpuscular HGB Conc 35 g/dl (31-36); Mean Corpuscular Hemoglobin 33 pg (27-31); Mean Corpuscular Volume 93 fL (80-94); Mean Platelet Volume 8.1 um3 (7.4-10.4); Platelet Count 178 10^3/ul (150-450); Red Cell Distribution Width 13 % (10.5-15); White Blood Count 9.4 10^3/ul (3.5-10.8)
[2017-11-14 05:37] LABS: EGFR Non-African American 95.5 (>60)
[2017-11-14] MEDS: Vancomycin(*) 1,000 MG in NS 0.9% 250 ML* 250 ML IVPB SCH ×2 (07:21→15:46)
[2017-11-14] MEDS ORDERED: Calcium Gluconate INJ* 2 GM in NS 0.9% 100 ML* 100 ML IV ONE (08:30)
--- NOTE | 2017-11-14 08:35 | RAD ---
HISTORY: Ileus surveillance COMPARISONS: November 13, 2017 VIEWS: Supine and left lateral decubitus views of the abdomen. FINDINGS: BOWEL: There is distention and mild dilatation of small bowel loops. There is gaseous distention of the colon with moderate dilatation. This has progressed from the previous examination. CALCULI: There are no abnormal calculi. BONES AND SOFT TISSUES: Mild degenerative changes are noted. OTHER FINDINGS: The lung bases are clear. There is no subphrenic gas. IMPRESSION: THERE IS MILD DILATATION OF SMALL BOWEL LOOPS WITH MODERATE DILATATION OF THE LARGE BOWEL. THIS IS PROGRESSED FROM THE PREVIOUS EXAMINATION. THE APPEARANCE IS SUGGESTIVE OF OBSTRUCTION, LIKELY A LOW COLONIC OBSTRUCTION.
[2017-11-14] MEDS: Heparin VIAL(*) 5000 UNITS/ML VIAL (FIVE THOUSAND) SUBCUT SCH ×2 (09:24→20:23)
[2017-11-14] MEDS: Famotidine IV* 10 MG/ML 2 ML (20 mg) IV SLOW PU SCH (09:24)
[2017-11-14] MEDS ORDERED: Potassium Phosphate IV* 15 MMOLE in NS 0.9% 250 ML* 250 ML IVPB ONE (09:30)
[2017-11-14] MEDS: ZOSYN 3.375 GM Q8H per EXTENDED INFUSION IVPB SCH ×2 (09:47)
[2017-11-14] MEDS ORDERED: TAZOBACTAM IVPB SCH ×2 (10:00)
[2017-11-14] MEDS ORDERED: PIPERACILLIN IVPB SCH ×2 (10:00)
--- NOTE | 2017-11-14 10:53 | SURGPN ---
Subjective - Introduction -: Patient was seen and examined at bedside. Laying comfortably in bed, a sleep. Events from last night noted, brief episodes of SVT, eventually resolved. Per nursing staff, 2 small liquid stools this AM and passing lots of flatus. No nausea or vomiting. NG tube insrtion could not be tolerated yesterday. No documented fever past 24 hrs. AXR reviewed, progressed dilated small bowel and colonic loops. - Medications -: Active Medications Generic Name Dose Route Start Last Admin Trade Name Freq PRN Reason Stop Dose Admin Acetaminophen 650 mg 11/10/17 14:42 Tylenol Tab* PO Q4H PRN FEVER/PAIN Famotidine 20 mg 11/11/17 11:00 11/14/17 09:24 Pepcid Iv* IV SLOW PU 20 mg DAILY JULIO Administration Haloperidol Lactate 5 mg 11/11/17 10:21 11/13/17 12:40 Haldol Inj Iv/Im* IV SLOW PU 5 mg Q6H PRN Administration AGITATION Heparin Sodium (Porcine) 5,000 units 11/12/17 10:00 11/14/17 09:24 Heparin Vial(*) SUBCUT 5,000 units Q12H JULIO Administration Hydralazine HCl 10 mg 11/12/17 00:01 11/12/17 05:51 Apresoline Iv* IV 10 mg Q4H PRN Administration Systolic >170 Vancomycin HCl 1,000 mg/ 250 mls @ 166.667 mls/hr 11/13/17 12:30 11/14/17 07: 21 Sodium Chloride IVPB 166.667 mls/hr Q8H JULIO Administration Protocol Sodium Chloride 1,000 mls @ 50 mls/hr 11/13/17 14:14 Ns 0.9% 1000 Ml* IV PER RATE JULIO Potassium Chloride 20 meq in 100 mls @ 50 mls/hr 11/14/17 09:00 Potassium Chloride 20 Meq/100 Ml Ivpremix* IV 11/14/17 12:59 Q2H [facility] Potassium Phosphate 15 mmole/ 255 mls @ 42 mls/hr 11/14/17 09:30 11/14/17 09: 28 Sodium Chloride IVPB 11/14/17 15:34 42 mls/hr ONCE ONE Administration Piperacillin Sod/Tazobactam 100 mls @ 200 mls/hr 11/14/17 10:00 11/14/17 09: 48 Sod 3.375 gm/ Sodium Chloride IVPB 200 mls/hr Q6H JULIO Administration Lorazepam 1 mg 11/11/17 10:13 11/14/17 01:58 Ativan Inj* IV PUSH 1 mg Q6H PRN Administration Anxiety/Agitation Pharmacy Consult 1 note 11/10/17 17:00 Zosyn Per Pharmacy* FOLLOW UP .ZOSYN PER PHARMACY [facility] Pharmacy Profile Note 1 note 11/14/17 12:30 Vancomycin Trough Check FOLLOW UP 11/14/17 12:31 1230 ONE Objective - Objective -: Laying in bed, appears comfortable, sleeping, breathing unlabored. - Intake and Output -: Intake & Output 11/12/17 11/13/17 11/14/17 11/15/17 06:59 06:59 06:59 06:59 Intake Total 2095.8 1064 2058 776 Output Total 9122 256 3319 400 Balance 570.8 319 858 376 Weight 225 lb 15.581 oz Intake: IV Fluids 1076.6 964 1808 776 ABX - ZOSYN 100 NS (0.9%) 1076.6 964 1458 266 potassium phosphate 250 vanco 250 260 IVPB 386 NS (0.9%) 386 Medicated IV 633.2 Vanco 552 potassium chloride 81.2 Oral 100 250 Output: Stephenson 6786 015 1587 Liquid Stool 40 400 Other: Date of Last Bowel 11/11/17 Movement # Bowel Movements 1 1 0 Estimated Stool Amount Small Large Small Surgical Physical Exam - Comments -: VSS, Tmax 99.5 Lungs CTA bilat. Heart RRR, no murmurs Abdomen distended and tympanic. Bowel sounds active on left side. Ext. without edema Labs noted AXR reviewed Assessment and Plan - Assessment -: An 82 y/o male admitted with severe sepsis secondary to RLE cellulitis, now with distended abdomen and progressed dilated bowel loops - Plan Additional Comments: Keep NPO except for meds and ice chips Appears to have an ileus from prior severe sepsis and lack of activity for an extended period of time NG tube decompression on hold, patient unable to tolerate tube insertion Doubt colonic obstruction with daily BMs and flatus Will discuss with Dr. Colvin for further recommendations.
[2017-11-14] MEDS ORDERED: Vancomycin Trough Check NOTE FOLLOW UP ONE (12:30)
--- NOTE | 2017-11-14 12:58 | PN ---
Progress Note - Progress Note Date of Service: 11/14/17 SOAP: Subjective: He is relaxed and comfortable this morning Events of last night noted His RN today says that he has had several large loose BM's this morning and is passing flatus Objective: Temp Pulse Resp BP Pulse Ox 98.2 F 74 18 150/68 96 11/14/17 10:18 11/14/17 08:50 11/14/17 10:18 11/14/17 08:50 11/14/17 10:18 PEX: Comfortable-he is sedated now Abdomen is firm and distended. No tenderness noted. There are very few intermittent bowel sounds, mainly on the left side. Laboratory Results - last 24 hr 11/14/17 11/14/17 11/14/17 05:14 05:14 05:14 WBC 9.4 RBC 3.80 L Hgb 12.5 L Hct 36 L MCV 93 MCH 33 H MCHC 35 RDW 13 Plt Count 178 MPV 8.1 Sodium 145 Potassium 3.0 L Chloride 113 H Carbon Dioxide 22 Anion Gap 10 BUN 21 Creatinine 0.78 Est GFR ( Amer) 115.6 Est GFR (Non-Af Amer) 95.5 BUN/Creatinine Ratio 26.9 H Glucose 126 H Calcium 8.2 L Ionized Calcium 4.23 L Phosphorus 2.2 L Magnesium 2.1 AXR reviewed-appearance of worsening ileus? obstruction? Assessment: I still think this represents and ileus-he is having more loose BM's this morning and passing flatus since the xrays were done this morning. Doubt obstruction; also I do not think there is volvulus present either. Bowel sounds are present today and he appears to have improved bowel function with more loose stool and flatus. Plan: Continue present care-discussed with Dr. Muñoz GI service not available for inpatient consult at this time.
[2017-11-14] MEDS: KCL 20 MEQ/100 ML IVPREMIX* 20 MEQ/100 ML BAG IV SCH ×2 (14:13→16:46)
--- NOTE | 2017-11-14 15:35 | PN ---
Subjective Date of Service: 11/14/17 Interval History: Pt seen and examined. Meds and labs reviewed. O/N, a CAT call transpired for SVT. Pt re-converted to NSR prior to ordered Adenosine being given. No other issues O/N. Pt also had an a BM this AM and is producing flatus per RN per their observation. CC: N/A ROS: Denied FINNEY/dizziness, F/C, N/V, CP, SOB, increased cough, sputum production , abd pain, diarrhea, constipation, dysuria, myalgias, arthralgias, throat pain , and new skin lesions. The rest of the 14 point ROS are unremarkable. Pt also observed by RN to have waxing and waning MS throughout the day but more confused in late afternoon to early evening. Per RN, pt does not sleep well at night PHYSICAL EXAM: GEN APPEARANCE: Asleep, arousable, and appropriately responds to inquiries, not in acute distress HEENT: NC/AT, PERRLA, moist oral mucosa, (-) throat erythema NECK: Soft, supple, (-) cervical LAD, (-)JVD HEART: S1S2 WNL, RRR, No MRG CHEST: CTA, BL, GAE, No W/R/R ABD: Soft, ND/NT, NABS 4x Q EXT: No C/C/E SKIN: Warm to touch PSYCH: No active psychosis, hallucinations, depression, SI/HI Family History: Unchanged from Admission Social History: Unchanged from Admission Past Medical History: Unchanged from Admission Objective Active Medications: Acetaminophen (Tylenol Tab*) 650 mg PO Q4H PRN PRN Reason: FEVER/PAIN Famotidine (Pepcid Iv*) 20 mg IV SLOW PU DAILY [facility] Last Admin: 11/14/17 09:24 Dose: 20 mg Haloperidol Lactate (Haldol Inj Iv/Im*) 5 mg IV SLOW PU Q6H PRN PRN Reason: AGITATION Last Admin: 11/13/17 12:40 Dose: 5 mg Heparin Sodium (Porcine) (Heparin Vial(*)) 5,000 units SUBCUT Q12H [facility] Last Admin: 11/14/17 09:24 Dose: 5,000 units Hydralazine HCl (Apresoline Iv*) 10 mg IV Q4H PRN PRN Reason: Systolic >170 Last Admin: 11/12/17 05:51 Dose: 10 mg Sodium Chloride (Ns 0.9% 1000 Ml*) 1,000 mls @ 50 mls/hr IV PER RATE JULIO Potassium Phosphate 15 mmole/ (Sodium Chloride) 255 mls @ 42 mls/hr IVPB ONCE ONE Stop: 11/14/17 15:34 Last Admin: 11/14/17 09:28 Dose: 42 mls/hr Piperacillin Sod/Tazobactam (Sod 3.375 gm/ Sodium Chloride) 100 mls @ 200 mls/ hr IVPB Q6H JULIO Last Admin: 11/14/17 09:48 Dose: 200 mls/hr Ceftriaxone Sodium 1 gm/ (Sodium Chloride) 50 mls @ 200 mls/hr IVPB Q24H JULIO Lorazepam (Ativan Inj*) 1 mg IV PUSH Q6H PRN PRN Reason: Anxiety/Agitation Last Admin: 11/14/17 01:58 Dose: 1 mg Risperidone (Risperdal) 0.5 mg PO TID JULIO Trazodone HCl (Desyrel Tab*) 25 mg PO BEDTIME [facility] Vital Signs - 8 hr 11/14/17 11/14/17 08:50 10:18 Temperature 98.2 F Pulse Rate 74 Respiratory 20 18 Rate Blood Pressure 150/68 (mmHg) O2 Sat by Pulse 96 96 Oximetry Oxygen Devices in Use Now: None Result Diagrams: 11/14/17 05:14 11/14/17 05:14 Microbiology and Other Data: Microbiology 11/12/17 12:30 Stool Gross Appearance - Final Stool Stool Occult Blood (ISAURA) - Final 11/10/17 12:17 Aerobic Blood Culture - Preliminary Blood Venous No Growth Day 2 Anaerobic Blood Culture - Preliminary No Growth Day 2 11/10/17 12:07 Aerobic Blood Culture - Preliminary Blood Venous No Growth Day 2 Anaerobic Blood Culture - Preliminary No Growth Day 2 11/10/17 14:27 Urine Culture - Final Urine No Growth (<1,000 CFU/mL) 11/10/17 16:20 Nasal Screen MRSA (PCR) - Final Nasal Mrsa Not Detected Assess/Plan/Problems-Billing Assessment: Mr Coates is an 82yo M with PMH of HTN, HLD, dementia, who presented to ED with fever, confusion, found to have severe sepsis/septic shock secondary to RLE cellulitis. - Patient Problems (1) Ileus Current Visit: Yes Status: Acute Code(s): K56.7 - ILEUS, UNSPECIFIED SNOMED Code(s): 373444614 Comment: -Two failed attempts of NGT placement yesterday---will continue to hold at this AM -Worsening with clear liquids and IVFtherefore will make pt NPO except meds with intermittent clamping -Place NGT to mild suction -Continue IVFs -Will await any further recommendations from Dr. Colvin -For repeat AXR in AM -Discussed case with Dr. Colvin today who mentioned to continue current conservative management and to perhaps consult GI. Unfortunately, GI service is unable for both today and tomorrow according to Dr. Greenfield. Updated Dr. Colvin (2) Dementia with behavioral disturbance Current Visit: Yes Status: Acute Code(s): F03.91 - UNSPECIFIED DEMENTIA WITH BEHAVIORAL DISTURBANCE SNOMED Code(s): 6366212214422 Comment: -Will place place back on Risperdal given QTc <500 ms (3) Insomnia Current Visit: Yes Status: Acute Code(s): G47.00 - INSOMNIA, UNSPECIFIED SNOMED Code(s): 950125923 Comment: -Will place pt on low-dose Trazodone (4) Cellulitis Current Visit: Yes Status: Acute Code(s): L03.90 - CELLULITIS, UNSPECIFIED SNOMED Code(s): 705101434 Comment: -Blood Cultures (-) x 4 days -D/C Vancomycin and Zosyn, and will place pt on Rocephin, abx day #4 (5) BRBPR (bright red blood per rectum) Current Visit: Yes Status: Acute Code(s): K62.5 - HEMORRHAGE OF ANUS AND RECTUM SNOMED Code(s): 664280425 Comment: - Abdomen is distended, but not tender. - May have ischemic colitis in the setting of septic shock vs hemorrhoids? - CT abd/pelvis along with distention suggests fluid filled large bowel likely due to diarrhea -H&H stable (6) Delirium Current Visit: Yes Status: Acute Code(s): R41.0 - DISORIENTATION, UNSPECIFIED SNOMED Code(s): 0622217 Comment: - Secondary to sepsis on top of dementia. - Continue Haldol as needed. Avoid benzos. (7) ERIN (acute kidney injury) Current Visit: Yes Status: Acute Code(s): N17.9 - ACUTE KIDNEY FAILURE, UNSPECIFIED SNOMED Code(s): 31023056 Comment: - Secondary to sepsis. - Improved. - Continue IVF. (8) Elevated troponin Current Visit: Yes Status: Acute Code(s): R74.8 - ABNORMAL LEVELS OF OTHER SERUM ENZYMES SNOMED Code(s): 060802438 Comment: - Secondary to demand ischemia. - Troponins are trending down. - No wall motion abn seen on echo with EF = 55-60%, supportive of above impression (9) DVT prophylaxis Current Visit: Yes Status: Acute Code(s): KBC5040 - SNOMED Code(s): 112890095 Comment: -Continue Heparin SQ Status and Disposition: -For PT eval
[2017-11-14] MEDS ORDERED: KCL 20 MEQ/100 ML IVPREMIX* 20 MEQ/100 ML BAG ONE (16:45)
[2017-11-14] MEDS: cefTRIAXone(*) 1 GM in NS 0.9% 50 ML* 50 ML IVPB SCH (16:48)
[2017-11-14] MEDS ORDERED: traZODone TAB* 50 MG TAB PO SCH ×2 (21:00)
[2017-11-15 06:08] LABS: Hematocrit 37 % (42-52); Hemoglobin 12.8 g/dl (14.0-18.0); Mean Corpuscular HGB Conc 35 g/dl (31-36); Mean Corpuscular Hemoglobin 33 pg (27-31); Mean Corpuscular Volume 94 fL (80-94); Platelet Count 188 10^3/ul (150-450); Red Blood Count 3.93 10^6/ul (4.00-5.40); Red Cell Distribution Width 13 % (10.5-15); White Blood Count 9.9 10^3/ul (3.5-10.8)
[2017-11-15 06:09] LABS: ABS Basophils 0.1 10^3/ul (0-0.2); ABS Eosinophils 0.1 10^3/ul (0-0.6); ABS Lymphocytes 1.1 10^3/ul (1.0-4.8); ABS Monocytes 0.8 10^3/ul (0-0.8); ABS Neutrophils 7.8 10^3/ul (1.5-7.7); ABS Nucleated RBC 0 10^3/ul
[2017-11-15 06:25] LABS: EGFR Non-African American 108.2 (>60)
[2017-11-15 06:29] LABS: ABS Basophils 0 10^3/ul (0-0.2); ABS Neutrophils 7.3 10^3/ul (1.5-7.7); Monocytes % 8 % (0-7)
[2017-11-15] MEDS ORDERED: Haloperidol INJ IV/IM* 5 MG/ML AMP IV SLOW PU PRN (08:37)
[2017-11-15] MEDS ORDERED: KCL 20 MEQ/100 ML IVPREMIX* 20 MEQ/100 ML BAG IV ONE (08:48)
[2017-11-15] MEDS ORDERED: Potassium Chlor TAB* 20 MEQ TAB.ER PO ONE (09:00)
[2017-11-15] MEDS ORDERED: NS 0.9% w/ 20 Meq KCL 1000 ML* 1,000 ML IV SCH (09:00)
--- NOTE | 2017-11-15 09:15 | PN ---
Subjective Date of Service: 11/15/17 Interval History: Pt c/o some abd pain on inspiration only. Family History: Unchanged from Admission Social History: Unchanged from Admission Past Medical History: Unchanged from Admission Objective Active Medications: Acetaminophen (Tylenol Tab*) 650 mg PO Q4H PRN PRN Reason: FEVER/PAIN Haloperidol Lactate (Haldol Inj Iv/Im*) 1 mg IV SLOW PU Q3H PRN PRN Reason: AGITATION Heparin Sodium (Porcine) (Heparin Vial(*)) 5,000 units SUBCUT Q12H [facility] Last Admin: 11/14/17 20:23 Dose: 5,000 units Ceftriaxone Sodium 1 gm/ (Sodium Chloride) 50 mls @ 200 mls/hr IVPB Q24H [facility] Last Admin: 11/14/17 16:48 Dose: 200 mls/hr Potassium Chloride/Sodium Chloride (Ns 0.9% W/ 20 Meq Kcl 1000 Ml*) 1,000 mls @ 100 mls/hr IV PER RATE [facility] Potassium Chloride (Potassium Chloride 20 Meq/100 Ml Ivpremix*) 20 meq in 100 mls @ 50 mls/hr IV ONCE ONE Stop: 11/15/17 10:47 Risperidone (Risperdal) 0.5 mg PO TID [facility] Last Admin: 11/15/17 08:46 Dose: 0.5 mg Vital Signs - 8 hr 11/15/17 11/15/17 03:31 07:53 Temperature 97.9 F Pulse Rate 84 76 Respiratory 14 17 Rate Blood Pressure 164/80 171/84 (mmHg) O2 Sat by Pulse 95 97 Oximetry Oxygen Devices in Use Now: None Appearance: Alert, in recliner chair. In good spirits. Looks comfortable. Eyes: No Scleral Icterus Neck: NL Appearance and Movements; NL JVP, No Thyroid Enlargement, Masses Respiratory: Symmetrical Chest Expansion and Respiratory Effort, Clear to Auscultation, Clear to Percussion Extremities: No Edema, No Clubbing, Cyanosis Skin: No Nodules or Sclerosis, - - mild erythem R lower leg, does not extend past ink markings Neurological: NL Sensation - Knows his full name, does not know his age or what type of place he is in. Cooperative. Result Diagrams: 11/15/17 05:55 11/15/17 05:55 Microbiology and Other Data: Microbiology 11/12/17 12:30 Stool Gross Appearance - Final Stool Stool Occult Blood (ISAURA) - Final 11/10/17 12:17 Aerobic Blood Culture - Preliminary Blood Venous No Growth Day 2 Anaerobic Blood Culture - Preliminary No Growth Day 2 11/10/17 12:07 Aerobic Blood Culture - Preliminary Blood Venous No Growth Day 2 Anaerobic Blood Culture - Preliminary No Growth Day 2 11/10/17 14:27 Urine Culture - Final Urine No Growth (<1,000 CFU/mL) 11/10/17 16:20 Nasal Screen MRSA (PCR) - Final Nasal Mrsa Not Detected Assess/Plan/Problems-Billing Assessment: Mr Coates is an 82yo M with PMH of HTN, HLD, dementia, who presented to ED with fever, confusion, found to have severe sepsis/septic shock secondary to RLE cellulitis. - Patient Problems (1) Abdominal distention Current Visit: Yes Status: Acute Code(s): R14.0 - ABDOMINAL DISTENSION ( GASEOUS) SNOMED Code(s): 56662032 Comment: ? Lower colonic obstruction vs volvulus vs other. No GI consultation available today. Transfer to another facility initiated, on wait list at [facility] and [facility], will try [place]. [facility] is on diversion. I discussed this with his daughter Promise Hopper. (2) Dementia with behavioral disturbance Current Visit: Yes Status: Acute Code(s): F03.91 - UNSPECIFIED DEMENTIA WITH BEHAVIORAL DISTURBANCE SNOMED Code(s): 5994038041559 Comment: Continue Risperdal 0.5 mg tid, haloiperidol 1mg IM prn PRN. (3) Hypokalemia Current Visit: Yes Status: Acute Code(s): E87.6 - HYPOKALEMIA SNOMED Code( s): 07085693 Comment: IV potassium ordered 11/15, BMP 11/16. (4) SVT (supraventricular tachycardia) Current Visit: Yes Status: Acute Code(s): I47.1 - SUPRAVENTRICULAR TACHYCARDIA SNOMED Code(s): 4721656 Comment: Resolved. (5) Cellulitis Current Visit: Yes Status: Acute Code(s): L03.90 - CELLULITIS, UNSPECIFIED SNOMED Code(s): 301383218 Comment: Continue ceftriaxone. 10 days of antibiotics will be complete . (6) ERIN (acute kidney injury) Current Visit: Yes Status: Acute Code(s): N17.9 - ACUTE KIDNEY FAILURE, UNSPECIFIED SNOMED Code(s): 07472480 Comment: Resolved. Status and Disposition: -For PT eval
[2017-11-15] MEDS: Heparin VIAL(*) 5000 UNITS/ML VIAL (FIVE THOUSAND) SUBCUT SCH ×2 (09:41→22:49)
--- NOTE | 2017-11-15 09:48 | PN ---
Progress Note - Progress Note Date of Service: 11/15/17 SOAP: Subjective: Nurses report more increasing abdominal distention He had some loose watery BM's last night--no flatus He has ambulated in the halls today-no complaints of N/V He has some mild abdominal pain Objective: Temp Pulse Resp BP Pulse Ox 97.9 F 76 17 171/84 97 11/15/17 07:53 11/15/17 07:53 11/15/17 07:53 11/15/17 07:53 11/15/17 07:53 Intake & Output 11/13/17 11/14/17 11/15/17 11/16/17 06:59 06:59 06:59 06:59 Intake Total 1064 2058 2302 Output Total 745 1200 1725 Balance 319 858 577 Intake: IV Fluids 964 1808 1422 ABX - ZOSYN 100 100 NS (0.9%) 964 1458 422 calcium gluconate 130 potassium phosphate 510 vanco 250 260 Oral 100 250 880 Output: Stephenson 745 1200 975 Liquid Stool 750 Other: # Bowel Movements 1 0 1 Estimated Stool Amount Large Small Small PEX: Comfortable-sitting in chair and much more alert and appropriate than yesterday Abd is distended and firm and tympanitic-bowel sounds are not present. There is some mild distension tenderness throughout, mainly more distended in the upper abdomen than yesterday. Laboratory Results - last 24 hr 11/14/17 11/15/17 11/15/17 13:35 05:55 05:55 WBC 9.9 RBC 3.93 L Hgb 12.8 L Hct 37 L MCV 94 MCH 33 H MCHC 35 RDW 13 Plt Count 188 MPV 8.0 Neut % (Auto) Not Reportable Lymph % (Auto) Not Reportable [place] % (Auto) Not Reportable Eos % (Auto) Not Reportable Baso % (Auto) Not Reportable Absolute Neuts (auto) 7.8 H Absolute Lymphs (auto) 1.1 Absolute Monos (auto) 0.8 Absolute Eos (auto) 0.1 Absolute Basos (auto) 0.1 Absolute Nucleated RBC 0 Immature Gran % 3 Neutrophils % 74 Band Neutrophils % 1 Lymphocytes % 14 L Monocytes % 8 H Eosinophils % 1 Basophils % 0 Myelocytes % 2 H Nucleated RBC % Not Reportable Abs Neuts (Manual) 7.3 Abs Lymphs (Manual) 1.4 Abs Monocytes (Manual) 0.8 Absolute Eos (Manual) 0.1 Abs Basophils (Manual) 0 Normal RBC Morphology Normal Sodium 145 Potassium 3.2 L Chloride 112 H Carbon Dioxide 22 Anion Gap 11 BUN 19 Creatinine 0.70 Est GFR ( Amer) 131.0 Est GFR (Non-Af Amer) 108.2 BUN/Creatinine Ratio 27.1 H Glucose 118 H Calcium 8.4 L Phosphorus 2.5 Magnesium 2.1 Vancomycin Trough 11.4 No AXR today Assessment: Abdominal distension-ileus but possibility of obstructoin ??--no clinical improvement from yesterday. Sepsis-improving secondary to lower extremity cellulitis Plan: His abdominal distension has not improved from yesterday when he was having loose BM's and passing flatus and appeared to be improving from what I feel is most likely an ileus. A partial obstruction in the left colon colon also needs to be ruled out but the admission CT scan shows no evidence of left colon mass or colonic obstruction and there was fluid throughout the colon down into the rectum. My concern is increasing right colon distension than could lead to perforation no matter what the cause of the distension and I feel that he requires a GI consult with consideration of colonoscopy for possible decompression and diagnosis. I discussed with Dr. Parks today-again today GI is not available for consultation and he is going to look into transfer to a facility that has GI available for consult and I agree with this plan. Will continue to follow.
[2017-11-15] MEDS ORDERED: Iodixanol* (CONTRAST) 320 MG/ML 100 ML SDV IV ONE (12:45)
--- NOTE | 2017-11-15 15:38 | RAD ---
CLINICAL HISTORY: sbo COMPARISON: November 11, 2017 TECHNIQUE: Multiple contiguous axial CT scans were obtained of the abdomen and pelvis after the administration of intravenous contrast. Coronal and sagittal multiplanar reformations are submitted for review. Oral contrast was administered. Delayed images were obtained through the abdomen. FINDINGS: LUNG BASES: There are small bilateral pleural effusions. LIVER: The liver is normal in shape, size, contour, and attenuation. BILE DUCTS: There is no intrahepatic or extrahepatic biliary dilatation. GALLBLADDER: The gallbladder is not visualized. Surgical clips are noted in the gallbladder fossa. PANCREAS: The pancreas is normal, without mass or ductal dilatation. SPLEEN: Normal in size and appearance. UPPER GI TRACT: Evaluation of the gastrointestinal tract is limited by incomplete gastric distention. The upper GI tract is unremarkable. SMALL BOWEL AND MESENTERY: There is diffuse distention of the small bowel. COLON: The large bowel is distended and mildly dilated. The large bowel is fluid-filled and gas-filled. There is a transition point to relatively decompressed large bowel the level of the splenic flexure. ADRENALS: Normal bilaterally. KIDNEYS: The kidneys are normal in shape, size, contour, and axis. There is no hydronephrosis or nephrolithiasis. BLADDER: The bladder is incompletely distended, collapsed around a Stephenson catheter and is not well evaluated. PELVIC ORGANS: Again noted is a markedly enlarged prostate gland. AORTA: There is calcific atherosclerotic disease of the abdominal aorta and its branches with dilatation of the infrarenal bowel aorta up to 3.3 cm transversely. IVC: Unremarkable LYMPH NODES: There is no lymphadenopathy by size criteria. ABDOMINAL WALL: There is no evidence for abdominal wall hernia. BONES AND SOFT TISSUES: Degenerative changes are noted. OTHER: There is a small amount of ascites IMPRESSION: 1. THERE IS DISTENTION AND MILD DILATATION OF THE LARGE BOWEL WITH A TRANSITION POINT TO DECOMPRESSED LARGE BOWEL TO LEVEL OF THE HEPATIC FLEXURE, WHICH MAY INDICATE SOME DEGREE OF MECHANICAL OBSTRUCTION OF THE LARGE BOWEL.. THERE IS DIFFUSE DISTENTION OF THE SMALL BOWEL. 2. SMALL BILATERAL PLEURAL EFFUSIONS. 3. SMALL AMOUNT OF ASCITES. 4. AGAIN NOTED IS A MARKEDLY ENLARGED PROSTATE. 5. AGAIN NOTED IS ATHEROSCLEROSIS WITH 3 CM INFRARENAL ABDOMINAL AORTIC ANEURYSM.
[2017-11-15] MEDS: cefTRIAXone(*) 1 GM in NS 0.9% 50 ML* 50 ML IVPB SCH (15:47)
--- NOTE | 2017-11-15 20:28 | TRS ---
TRANSFER SUMMARY: DATE OF ADMISSION: DATE OF TRANSFER: 11/15/17 HOSPITAL COURSE: This 82-year-old man presented with altered mental status. He has dementia and has been on risperidone. His caretakers found him more confused. He was felt to be septic. His white count was 26,000. He had cellulitis in his right leg. He had lactic acidosis. He was given antibiotics and fluids. He was cared for by the farmer vegetable for several days. However, he then developed abdominal pain. He had some liquid stools. Abdominal x-ray showed dilated loops of small bowel and colonic loops. At first, it was thought he had ileus; however, by the day of transfer, his abdomen became more tense and distended. He still has abdominal pain. CT scan showed possible transition point near the splenic flexure and the large bowel. Gastroenterology consultation is not unavailable today and he is being transferred to [facility] [place] for Gastroenterology consultation and treatment as indicated. TRANSFER DIAGNOSES: 1. Possible colonic obstruction. 2. Dementia with behavioral disturbance. 3. Hypokalemia. 4. History of supraventricular tachycardia. 5. Cellulitis. MEDICATIONS ON TRANSFER: 1. Acetaminophen 650 mg every 4 hours p.r.n. 2. Haloperidol 1 mg IV every 4 hours p.r.n. 3. Heparin 5000 units subcutaneous every 8 hours. 4. Normal saline with 20 mEq of potassium chloride at 100 an hour. 5. Risperidone 0.5 mg p.o. t.i.d. 6. Ceftriaxone 1 g IV q.24 hours. [id number]/[facility] #: [id number] [facility]
[2017-11-15 23:53] VITALS: BP 164/84
== END 2017-11-16 00:15 | disposition short-term general hospital (02) | DRG 871 ==
LOC: ED 10:59 → ICU 14:39 → MEDTELE 11-12 13:47
PROVIDERS: ADMIT Internal Medicine; ATTEND Internal Medicine
DX: A41.9 Sepsis, unspecified organism (principal); R65.21 Severe sepsis with septic shock; N17.9 Acute kidney failure, unspecified; L03.115 Cellulitis of right lower limb; E87.2 Acidosis; F05 Delirium due to known physiological condition; I47.1 Supraventricular tachycardia; K62.5 Hemorrhage of anus and rectum; I24.8 Other forms of acute ischemic heart disease; F03.91 Unspecified dementia, unspecified severity, with behavioral disturbance; K56.609 Unspecified intestinal obstruction, unspecified as to partial versus complete obstruction; I10 Essential (primary) hypertension; E78.5 Hyperlipidemia, unspecified; B95.5 Unspecified streptococcus as the cause of diseases classified elsewhere; Z66 Do not resuscitate; R40.2362 Coma scale, best motor response, obeys commands, at arrival to emergency department; R40.2132 Coma scale, eyes open, to sound, at arrival to emergency department; R40.2242 Coma scale, best verbal response, confused conversation, at arrival to emergency department; R19.7 Diarrhea, unspecified; G47.00 Insomnia, unspecified; E87.6 Hypokalemia; Z82.3 Family history of stroke; Z90.49 Acquired absence of other specified parts of digestive tract
CPT/HCPCS: 36415; 70450; 71045; 74019; 74177; 80048; 80053; 80202; 81003; 81015; 82270; 82330; 82550; 82553; 82803; 83605; 83630; 83735; 83880; 84100; 84145; 84484; 85025; 85027; 85060; 85384; 85610; 85652; 85730; 86140; 87040; 87086; 87493; 87641; 93005; 93306; 99285; A9270-GY; G8978-GP-CK; G8979-GP-CI; J0360; J0610; J0690; J0692; J0696; J1630; J1644; J2060; J2310; J2543; J3370; J3480; Q9967

== ENCOUNTER 2018-01-16 14:55 | Emergency (ER) | payer MEDICARE, OTHER ==
[2018-01-16] MEDS ORDERED: Adenosine* 3 MG/ML VIAL ONE (15:06)
[2018-01-16] MEDS ORDERED: Adenosine* 3 MG/ML VIAL IV PUSH ONE ×2 (15:09→15:11)
[2018-01-16] MEDS ORDERED: NS 0.9% 1000 ML* 1,000 ML IV ONE (15:09)
--- NOTE | 2018-01-16 15:10 | ED ---
Palpitations / Dysrhythmia - HPI Summary HPI Summary: This pt is an 82 y/o male presenting to [facility] via EMS for fast heart rate. Pt lives in the Memory Care Unit at [place] and his precipitate washer, Coni, is giving the history. Dj Instructor states the pt was complaining of not feeling well and stated his "head felt full." Dj Instructor reports the pt was noted to have a fever, fast heart rate in the 180s, and blood pressure in the 70s/50s. Pt denies any chest pain. PMHx includes dementia, HLD, sepsis, delusions. Pt had a recent sepsis admission 2 months ago. Pt is DNR as of 09/01/17. - History of Current Complaint Hx Obtained From: Patient, Family/Dj Instructor - from [facility] Onset/Duration: Sudden Onset, Still Present Timing: Constant Severity Currently: Moderate Character: Fast Aggravating: Nothing Alleviating: Nothing Associated Signs & Symptoms: Lightheadedness - "head feels full" - Allergy/Home Medications Allergies/Adverse Reactions: Allergies Allergy/AdvReac Type Severity Reaction Status Date / Time No Known Allergies Allergy Verified 11/10/17 13:04 PMH/Surg Hx/FS Hx/Imm Hx Endocrine/Hematology History: Denies: Hx Diabetes Cardiovascular History: Reports: Hx Hypertension, Other Cardiovascular Problems/ Disorders - Hyperlipidemia Sensory History: Reports: Hx Contacts or Glasses Denies: Hx Hearing Aid Opthamlomology History: Reports: Hx Contacts or Glasses Neurological History: Reports: Hx Dementia Infectious Disease History: Denies: Traveled Outside the [place] in Last 30 Days - Family History Known Family History: Positive: Other - Stroke, [place] Negative: Cardiac Disease, Diabetes - Social History Alcohol Use: None Substance Use Type: Reports: None Smoking Status (MU): Former Smoker Review of Systems Positive: Fever Cardiovascular: Other - POS: low blood pressure Positive: Palpitations - fast heart rate. Negative: Chest Pain Neurological: Other - "head feels full" All Other Systems Reviewed And Are Negative: Yes Physical Exam - Summary Physical Exam Summary: VITAL SIGNS: Reviewed. GENERAL: Patient is a well-developed and nourished male who is lying comfortable in the stretcher. Patient is not in any acute respiratory distress. HEAD AND FACE: No signs of trauma. No ecchymosis, hematomas or skull depressions. No sinus tenderness. EYES: PERRLA, EOMI x 2, No injected conjunctiva, no nystagmus. EARS: Hearing grossly intact. Ear canals and tympanic membranes are within normal limits. MOUTH: Oropharynx within normal limits. NECK: Supple, trachea is midline, no adenopathy, no JVD, no carotid bruit, no c- spine tenderness, neck with full ROM. CHEST: Symmetric, no tenderness at palpation LUNGS: Clear to auscultation bilaterally. No wheezing or crackles. CVS: Regular rate and rhythm, S1 and S2 present, no murmurs or gallops appreciated. ABDOMEN: Soft, non-tender. No signs of distention. No rebound, no guarding, and no masses palpated. Bowel sounds are normal. EXTREMITIES: FROM in all major joints, no edema, no cyanosis or clubbing. NEURO: Alert and oriented x 3. No acute neurological deficits. Speech is normal and follows commands. SKIN: Dry and warm Triage Information Reviewed: Yes Vital Signs On Initial Exam: Initial Vitals Temp Pulse Resp BP Pulse Ox 99.6 F 182 14 86/57 95 01/16/18 15:00 01/16/18 15:00 01/16/18 15:00 01/16/18 15:00 01/16/18 15:00 Vital Signs Reviewed: Yes Diagnostics - Laboratory Result Diagrams: 01/16/18 15:10 01/16/18 15:10 Lab Statement: Any lab studies that have been ordered have been reviewed, and results considered in the medical decision making process. - Radiology Chest XR Radiology Interpretation Completed By: Radiologist Summary of Radiographic Findings: IMPRESSION: Low lung volumes. No active cardiopulmonary disease. Dr. Montesinos has reviewed this report. - EKG 14:55 Cardiac Rate: Tachycardia - at 183 bpm EKG Rhythm: SVT Summary of EKG Findings: No ST elevations 14:56 Cardiac Rate: Tachycardia - at 102 bpm EKG Rhythm: Sinus Tachycardia Summary of EKG Findings: No ST elevations. 15:08 Cardiac Rate: NL - at 94 bpm EKG Rhythm: Sinus Rhythm Summary of EKG Findings: No ST elevations Course/Dx - Course Assessment/Plan: This pt is an 82 y/o male presenting to [facility] via EMS for fast heart rate. Pt lives in the Memory Care Unit at [place] and his precipitate washer, Coni, is giving the history. Dj Instructor states the pt was complaining of not feeling well and stated his "head felt full." Dj Instructor reports the pt was noted to have a fever, fast heart rate in the 180s, and blood pressure in the 70s/50s. Pt denies any chest pain. PMHx includes dementia, HLD, sepsis, delusions. Pt had a recent sepsis admission 2 months ago. Pt is DNR as of . Blood tests without any significant abnormality except for lactic acid is 2.4, glucose of 187, creatinine 1.25, and troponin of 0.08 which is significantly decreased from the previous visit. I also believe that the lactic acid is elevated since the patient was in SVT for a while. The patient was observed for a couple hours in the emergency department and the patient has been in normal sinus rhythm at 89-90 bpm. I discussed the case with Dr. Eaton from cardiology and he recommends for the patient to be placed in a slow dose of beta kyle and follow up with his primary care physician. Therefore the patient will be discharged with a prescription for metoprolol 12.5 mg once a day and follow-up with his PCP. Before discharge the patient is hemodynamically stable, alert but not oriented. - Diagnoses Provider Diagnoses: SVT (supraventricular tachycardia) - Critical Care Time Critical Care Time: 30-74 min Discharge - Sign-Out/Discharge Documenting (check all that apply): Patient Departure - Discharge home - Discharge Plan Condition: Stable Disposition: HOME Patient Education Materials: Supraventricular Tachycardia (ED) Referrals: Shae Maddox MD [Primary Care Provider] - Additional Instructions: Please follow up with your primary care provider in 2-3 days. RETURN TO THE ED FOR ANY NEW OR WORSENING SYMPTOMS. - Billing Disposition and Condition Condition: STABLE Disposition: Home - Attestation Statements Document Initiated by Tiffany: Yes Documenting Scribe: Feli Craig Provider For Whom Tiffany is Documenting (Include Credential): Joaquin Montesinos MD Scribe Attestation: Feli Louise scribed for Joaquin Montesinos MD on 01/17/18 at 1813. Scribe Documentation Reviewed: Yes Provider Attestation: The documentation as recorded by the Feli salas accurately reflects the service I personally performed and the decisions made by , Joaquin Montesinos MD
[2018-01-16 15:25] LABS: ABS Basophils 0.1 10^3/ul (0-0.2); ABS Eosinophils 0.1 10^3/ul (0-0.6); ABS Lymphocytes 1.3 10^3/ul (1.0-4.8); ABS Monocytes 0.8 10^3/ul (0-0.8); ABS Neutrophils 5.6 10^3/ul (1.5-7.7); ABS Nucleated RBC 0 10^3/ul; Eosinophil % 0.9 % (0-6); Hematocrit 43 % (42-52); Hemoglobin 14.5 g/dl (14.0-18.0); Lymphocyte % 16.5 % (25-47); Mean Corpuscular HGB Conc 34 g/dl (31-36); Mean Corpuscular Hemoglobin 32 pg (27-31); Mean Corpuscular Volume 94 fL (80-94); Mean Platelet Volume 8.9 um3 (7.4-10.4); Nucleated Red Blood Cells % 0.1; Platelet Count 171 10^3/ul (150-450); Red Blood Count 4.51 10^6/ul (4.00-5.40); Red Cell Distribution Width 13 % (10.5-15); White Blood Count 7.8 10^3/ul (3.5-10.8)
[2018-01-16 15:28] LABS: INR 0.98 (0.77-1.02)
[2018-01-16 15:39] LABS: EGFR Non-African American 55.4 (>60)
--- NOTE | 2018-01-16 15:45 | RAD ---
HISTORY: Palpitations COMPARISONS: November 10, 2017 VIEWS: 1: frontal AP view of the chest at 3:15 PM FINDINGS: LINES AND TUBES: None. CARDIOMEDIASTINAL SILHOUETTE: The cardiomediastinal silhouette is normal for portable technique. PLEURA: The costophrenic angles are sharp. No pleural abnormalities are noted. LUNG PARENCHYMA: The lung volumes are low. The lungs are clear accounting for the phase of respiration. ABDOMEN: The upper abdomen is clear. There is no subphrenic gas. BONES AND SOFT TISSUES: No bone or soft tissue abnormalities are noted. IMPRESSION: LOW LUNG VOLUMES. NO ACTIVE CARDIOPULMONARY DISEASE.
[2018-01-16 18:04] LABS: Urine Appearance Cloudy; Urine Blood Negative (Negative); Urine Color Yellow; Urine Ketones Negative (Negative); Urine Protein Negative (Negative); Urine Specific Gravity 1.012 (1.010-1.030); Urine Urobilinogen Negative (Negative)
[2018-01-16 18:59] VITALS: BP 111/81
== END 2018-01-16 18:58 | disposition home or self-care (01) ==
LOC: ED 14:55
DX: I47.1 Supraventricular tachycardia (principal); F03.90 Unspecified dementia, unspecified severity, without behavioral disturbance, psychotic disturbance, mood disturbance, and anxiety; E78.5 Hyperlipidemia, unspecified; Z87.891 Personal history of nicotine dependence
CPT/HCPCS: 36415; 71045; 80053; 81003; 82550; 82553; 83605; 83735; 84443; 84484; 85025; 85610; 93005; 96361; 96374; 99285; J0153

== ENCOUNTER 2018-04-16 18:10 | Emergency (ER) | payer MEDICARE ==
[2018-04-16] MEDS ORDERED: Nicotine Inhaler* 10 MG AMP INH PRN (18:24)
[2018-04-16 18:51] LABS: ABS Basophils 0 10^3/ul (0-0.2); ABS Eosinophils 0.1 10^3/ul (0-0.6); ABS Monocytes 0.6 10^3/ul (0-0.8); ABS Neutrophils 4.4 10^3/ul (1.5-7.7); ABS Nucleated RBC 0 10^3/ul; Eosinophil % 1.5 %; Hematocrit 41 % (42-52); Hemoglobin 14.1 g/dl (14.0-18.0); Lymphocyte % 28.1 %; Mean Corpuscular HGB Conc 35 g/dl (31-36); Mean Corpuscular Hemoglobin 32 pg (27-31); Mean Corpuscular Volume 93 fL (80-94); Mean Platelet Volume 8.3 fL (7.4-10.4); Nucleated Red Blood Cells % 0.1; Platelet Count 152 10^3/ul (150-450); Red Blood Count 4.37 10^6/ul (4.00-5.40); Red Cell Distribution Width 14 % (10.5-15); White Blood Count 7.1 10^3/ul (3.5-10.8)
[2018-04-16 19:09] LABS: ALT 17 U/L (7-52); AST 22 U/L (13-39); Albumin/Globulin Ratio 1.6 (1-3); Alkaline Phosphatase 98 U/L (34-104); Anion Gap 7 mmol/L (2-11); BUN/Creatinine Ratio 21.1 (8-20); Blood Urea Nitrogen 19 mg/dL (6-24); CO2 Carbon Dioxide 30 mmol/L (22-32); Calcium 9.6 mg/dL (8.6-10.3); Chloride 104 mmol/L (101-111); Globulin 2.5 g/dL (2-4); Glucose 107 mg/dL (70-100); Potassium 3.9 mmol/L (3.5-5.0); Sodium 141 mmol/L (135-145); Total Protein 6.5 g/dL (6.4-8.9)
[2018-04-16 19:15] LABS: Acetaminophen < 15 mcg/mL; Alcohol < 10 mg/dL (<10); Salicylate < 2.50 mg/dL (<30)
[2018-04-16 19:30] LABS: TSH (Thyroid Stimulating Horm) 4.21 mcIU/mL (0.34-5.60)
[2018-04-16] MEDS ORDERED: risperiDONE TAB* 2 MG PO ONE (20:03)
--- NOTE | 2018-04-16 20:05 | ED ---
Medical Screening - HPI Summary HPI Summary: Patient brought by [facility] from [facility] for aggressive behavior towards staff. Patient has history of dementia, does not remember event. Patient is calm and cooperative here in the ED, denies fever, cough, sore throat , CP, SOB, N/V/D, abdominal pain, change in urine, change in BM. Medical history is DNR, dementia, hypokalemia, SVT, HDL, HTN, CAD. - History of Current Complaint Chief Complaint: EDMentalHealth Stated Complaint: 941 Time Seen by Provider: 04/16/18 18:21 Onset/Duration: Started Hours Ago Severity: moderate PMH/Surg Hx/FS Hx/Imm Hx Endocrine/Hematology History: Denies: Hx Diabetes Cardiovascular History: Reports: Hx Hypertension, Other Cardiovascular Problems/ Disorders - Hyperlipidemia History: Denies: Hx Dialysis Sensory History: Reports: Hx Contacts or Glasses Denies: Hx Hearing Aid Opthamlomology History: Reports: Hx Contacts or Glasses Neurological History: Reports: Hx Dementia Psychiatric History: Denies: Hx Autism Infectious Disease History: No Infectious Disease History: Denies: Traveled Outside the [place] in Last 30 Days - Family History Known Family History: Positive: Other - Stroke, [place] Negative: Cardiac Disease, Diabetes - Social History Lives: Assisted Living Alcohol Use: None Substance Use Type: Reports: None Smoking Status (MU): Former Smoker Review of Systems Constitutional: Negative Eyes: Negative ENT: Negative Cardiovascular: Negative Respiratory: Negative Gastrointestinal: Negative Genitourinary: Negative Musculoskeletal: Negative Skin: Negative Neurological: Negative Psychological: Normal All Other Systems Reviewed And Are Negative: Yes Physical Exam - Summary Physical Exam Summary: Patient calm and cooperative. Does not remember events. Physical exam unremarkable. Triage Information Reviewed: Yes Vital Signs On Initial Exam: Initial Vitals Temp Pulse Resp BP Pulse Ox 97.9 F 63 16 187/95 94 04/16/18 18:13 04/16/18 18:13 04/16/18 18:13 04/16/18 18:13 04/16/18 18:13 Vital Signs Reviewed: Yes Appearance: Positive: Well-Appearing Skin: Positive: Warm Head/Face: Positive: Normal Head/Face Inspection Eyes: Positive: Normal Neck: Positive: Supple Respiratory/Lung Sounds: Positive: Clear to Auscultation Cardiovascular: Positive: Normal Abdomen Description: Positive: Nontender Musculoskeletal: Positive: Normal Neurological: Positive: Normal Psychiatric: Positive: Normal AVPU Assessment: Alert - Voltaire Coma Scale Best Eye Response: 4 - Spontaneous Best Motor Response: 6 - Obeys Commands Best Verbal Response: 5 - Oriented Coma Scale Total: 15 Diagnostics - Vital Signs Vital Signs Temp Pulse Resp BP Pulse Ox 04/16/18 18:13 97.9 F 63 16 187/95 94 - Laboratory Lab Results: Lab Results 04/16/18 04/16/18 Range/Units 18:45 18:45 WBC 7.1 (3.5-10.8) 10^3/ul RBC 4.37 (4.00-5.40) 10^6/ul Hgb 14.1 (14.0-18.0) g/dl Hct 41 L (42-52) % MCV 93 (80-94) fL MCH 32 H (27-31) pg MCHC 35 (31-36) g/dl RDW 14 (10.5-15) % Plt Count 152 (150-450) 10^3/ul MPV 8.3 (7.4-10.4) fL Neut % (Auto) 62.0 % Lymph % (Auto) 28.1 % Isabella % (Auto) 8.0 % Eos % (Auto) 1.5 % Baso % (Auto) 0.4 % Absolute Neuts (auto) 4.4 (1.5-7.7) 10^3/ul Absolute Lymphs (auto) 2.0 (1.0-4.8) 10^3/ul Absolute Monos (auto) 0.6 (0-0.8) 10^3/ul Absolute Eos (auto) 0.1 (0-0.6) 10^3/ul Absolute Basos (auto) 0 (0-0.2) 10^3/ul Absolute Nucleated RBC 0 10^3/ul Nucleated RBC % 0.1 Sodium 141 (135-145) mmol/L Potassium 3.9 (3.5-5.0) mmol/L Chloride 104 (101-111) mmol/L Carbon Dioxide 30 (22-32) mmol/L Anion Gap 7 (2-11) mmol/L BUN 19 (6-24) mg/dL Creatinine 0.90 (0.67-1.17) mg/dL Est GFR ( Amer) 98.0 (>60) Est GFR (Non-Af Amer) 81.0 (>60) BUN/Creatinine Ratio 21.1 H (8-20) Glucose 107 H (70-100) mg/dL Calcium 9.6 (8.6-10.3) mg/dL Total Bilirubin 0.60 (0.2-1.0) mg/dL AST 22 (13-39) U/L ALT 17 (7-52) U/L Alkaline Phosphatase 98 (34-104) U/L Total Protein 6.5 (6.4-8.9) g/dL Albumin 4.0 (3.2-5.2) g/dL Globulin 2.5 (2-4) g/dL Albumin/Globulin Ratio 1.6 (1-3) TSH 4.21 (0.34-5.60) mcIU/mL Salicylates < 2.50 (<30) mg/dL Acetaminophen < 15 mcg/mL Serum Alcohol < 10 (<10) mg/dL Result Diagrams: 04/16/18 18:45 04/16/18 18:45 Lab Statement: Any lab studies that have been ordered have been reviewed, and results considered in the medical decision making process. Course/Dx - Course Course Of Treatment: Patient brought by [facility] from [facility] for aggressive behavior towards staff. Patient has history of dementia, does not remember event. Patient is calm and cooperative here in the ED, denies fever, cough, sore throat, CP, SOB, N/V/D, abdominal pain, change in urine, change in BM. Medical history is DNR, dementia, hypokalemia, SVT, HDL, HTN, CAD. Physical exam:Patient calm and cooperative. Does not remember events. Physical exam unremarkable. Patient behaved appropriately during entire stay here in the ED. Labs and urine unremarkable. Vital signs within normal limits. Original plan was to discharge patient with recommendation to maintain risperidone 0.5 mg a.m. dose and to increase daily pm risperidone to 1 mg in the p.m. with PRN dose of 2 mg. Multiple conversations with Mr. Papo Li of [facility] and Dr. Box PCP for patient who insisted that we should keep patient despite lack of medical criteria to do so. Dr. Box stated facility likely to just send patient back here if we discharged patient and she felt it was unsafe to patient to discharge him back to assisted living. Discussion with hospitalist concurred there was no medical criteria for admission. After repeated conversations with both director of [facility] and Dr. Box and hospitalist, charge nurse, a senior care admission was considered. However senior care admission required approval of family to pay for admission if insurance would not. The family refused. Facility agreed to take patient back. Risperidone 2 mg by mouth was administered to patient here in the ED. Patient continued to be calm and appropriate. - Diagnoses Provider Diagnoses: Dementia, Aggressive behavior Discharge - Sign-Out/Discharge Documenting (check all that apply): Patient Departure - Discharge Plan Condition: Stable Disposition: JAIL FACILITY Patient Education Materials: Dementia (ED) Referrals: Shae Maddox MD [Primary Care Provider] - Additional Instructions: We recommend increasing risperidone dose to 0.5 mg in am, and 1 mg in pm with a PRN of 2 mg. Follow-up with primary care. Return to the ED for any new or worsening symptoms - Billing Disposition and Condition Condition: STABLE Disposition: Jail Facility
[2018-04-16 20:10] LABS: Urine Appearance Clear; Urine Bilirubin Negative (Negative); Urine Blood Negative (Negative); Urine Color Yellow; Urine Glucose Negative (Negative); Urine Ketones Negative (Negative); Urine Nitrite Negative (Negative); Urine Protein Negative (Negative); Urine Specific Gravity 1.013 (1.010-1.030); Urine Urobilinogen Negative (Negative)
[2018-04-16 20:28] LABS: Barbiturates Urine Screen None Detected (None Detect); Benzodiazepine Urine Screen None Detected (None Detect); Urine Cannabinoids Screen None Detected (None Detect)
[2018-04-16] MEDS ORDERED: Acetaminophen TAB* 325 MG PO PRN (21:32)
[2018-04-16 22:22] VITALS: BP 124/69
[2018-04-17] MEDS ORDERED: Acetaminophen TAB* 325 MG PO SCH (09:00)
[2018-04-17] MEDS ORDERED: Atorvastatin* 40 MG TAB PO SCH (09:00)
[2018-04-17] MEDS ORDERED: Lisinopril TAB* 10 MG PO SCH (09:00)
[2018-04-17] MEDS ORDERED: PARoxetine HCL TAB* 20 MG PO SCH (09:00)
== END 2018-04-16 22:19 ==
LOC: ED 18:10
DX: F03.91 Unspecified dementia, unspecified severity, with behavioral disturbance (principal); Z87.891 Personal history of nicotine dependence; Z66 Do not resuscitate; I10 Essential (primary) hypertension; I25.10 Atherosclerotic heart disease of native coronary artery without angina pectoris; I47.1 Supraventricular tachycardia; E87.6 Hypokalemia
CPT/HCPCS: 36415; 80053; 80307; 80320; 80329; 81003; 84443; 85025; 93005; 99282; G0480

== ENCOUNTER 2018-07-15 08:55 | Emergency (ER) | payer MEDICARE ==
--- NOTE | 2018-07-15 09:05 | ED ---
Head Injury - HPI Summary HPI Summary: This patient is an 83 year old M brought on by ambulance to [facility] with a chief complaint of forehead laceration since 08:00. Per EMS, the staff at the patient s group home report that the patient fell and hit his face. The patient notes that he did not know that he fell. The patient rates the pain 3/10 in severity. Symptoms aggravated by movement. Symptoms alleviated by nothing. Patient reports FINNEY and bilateral shoulder pain. Patient denies neck pain. - History Of Current Complaint Stated Complaint: FALL, HEAD INJURY PER EMS Time Seen by Provider: 07/15/18 08:59 Hx Obtained From: Patient, EMS Mechanism Of Injury: Fall From A Standing Position Onset/Duration: Started Minutes Ago Onset of Pain: Immediate, Post Accident, Prior to Arrival Severity Currently: Mild Severity Initially: Mild Pain Intensity: 3 Pain Scale Used: 0-10 Numeric Location of Head Injury: Frontal Aggravating Factor(s): Movement Alleviating Factor(s): Other: - nothing Associated Signs And Symptoms: Other: - laceration to forehead - Allergies/Home Medications Allergies/Adverse Reactions: Allergies Allergy/AdvReac Type Severity Reaction Status Date / Time No Known Allergies Allergy Verified 04/16/18 18:19 Home Medications: Home Medications Metoprolol Succinate 0.5 tab PO DAILY 07/15/18 [History Confirmed 07/15/18] PMH/Surg Hx/FS Hx/Imm Hx Endocrine/Hematology History: Denies: Hx Diabetes Cardiovascular History: Reports: Hx Hypertension, Other Cardiovascular Problems/ Disorders - Hyperlipidemia History: Denies: Hx Dialysis Sensory History: Reports: Hx Contacts or Glasses Denies: Hx Hearing Aid Opthamlomology History: Reports: Hx Contacts or Glasses Neurological History: Reports: Hx Dementia Psychiatric History: Denies: Hx Autism - Family History Known Family History: Positive: Other - Stroke, [place] Negative: Cardiac Disease, Diabetes - Social History Alcohol Use: None Substance Use Type: Reports: None Smoking Status (MU): Former Smoker Review of Systems Negative: Fever Negative: Epistaxis Positive: Arthralgia - bilateral shoulder pain Skin: Other - laceration above right eye Positive: Headache All Other Systems Reviewed And Are Negative: Yes Physical Exam - Summary Physical Exam Summary: Appearance: The patient is well-nourished in no acute distress and in no acute pain. Skin: The skin is warm and dry and skin color reflects adequate perfusion. Laceration above right eye HEENT: The head is normocephalic and atraumatic. The pupils are equal and reactive. The conjunctivae are clear and without drainage. Nares are patent and without drainage. Mouth reveals moist mucous membranes and the throat is without erythema and exudate. The external ears are intact. The ear canals are patent and without drainage. The tympanic membranes are intact. Neck: The neck is supple with full range of motion and non-tender. There are no carotid bruits. There is no neck vein distension. Respiratory: Chest is non-tender. Lungs are clear to auscultation and breath sounds are symmetrical and equal. Cardiovascular: Heart is regular rate and rhythm. There is no murmur or rub auscultated. There is no peripheral edema and pulses are symmetrical and equal. Abdomen: The abdomen is soft and non-tender. There are normal bowel sounds heard in all four quadrants and there is no organomegaly palpated. Musculoskeletal: There is no back tenderness noted. Tender to palpation and ROM of bilateral shoulders. There is good capillary refill. There is no peripheral edema or calf tenderness elicited. Neurological: Patient is alert and oriented to person, place and time. The patient has symmetrical motor strength in all four extremities. Cranial nerves are grossly intact. Deep tendon reflexes are symmetrical and equal in all four extremities. GCS 15 Psychiatric: The patient has an appropriate affect and does not exhibit any anxiety or depression. Triage Information Reviewed: Yes Vital Signs Reviewed: Yes Procedures - Procedure Summary Procedure Summary: Laceration repair of facial laceration above right eye with 9 6-0 nylon simple interrupted sutures using 1% lido with epi. - Laceration/Wound Repair #1 Location: face - above right eye Anesthesia: 1.0%, Lido - 1% lido with epi, Epi Laceration/Wound Explored: clean, no foreign body removed Closure: Single Layer - simple interrupted Suture Type: Nylon - 6-0 Number of Sutures: 9 Diagnostics - Laboratory Lab Statement: Any lab studies that have been ordered have been reviewed, and results considered in the medical decision making process. - Radiology Bilateral Shoulder XR Radiology Interpretation Completed By: Radiologist Summary of Radiographic Findings: No fracture of the left shoulder. Dr. Brambila has reviewed this report. - CT CT C-Spine CT Interpretation Completed By: Radiologist Summary of CT Findings: IMPRESSION: There is no fracture of the cervical spine present. Degenerative disc disease. at C3-C4, C5-C6 and C6-C7. Facet arthropathy is noted. Dr. Brambila has reviewed this report. CT Brain CT Interpretation Completed By: Radiologist Summary of CT Findings: IMPRESSION: Chronic ischemic White change. Old right occipital lobe infarct is present. Dr. Brambila has reviewed this report. Head Injury Course/Dx Course Of Treatment: Mr. Coates had a mechanical fall at the group home today hitting his face. He sustained a laceration over the right eyebrow and the bridge of his nose. He can't really tell me any details because of his dementia. He complains of pain in the shoulders but otherwise has no complaints. He was nontoxic in appearance with stable vitals and a 2 cm right forehead laceration and 1 cm nose laceration. His nose is quite tender. CTs of his head and neck are negative and shoulder plain films are also negative. I sutured him up under aseptic conditions and he cooperated well. - Diagnoses Provider Diagnoses: Facial laceration, Shoulder injury Discharge - Sign-Out/Discharge Documenting (check all that apply): Patient Departure - discharge home Patient Received Moderate/Deep Sedation with Procedure: No - Discharge Plan Condition: Stable Disposition: HOME Patient Education Materials: Facial Laceration (ED) Referrals: Shae Maddox MD [Primary Care Provider] - 1 Day Additional Instructions: Follow up with your primary care physician in 1-2 days. Return to the emergency with any new or worsening symptoms. - Billing Disposition and Condition Condition: STABLE Disposition: Home - Attestation Statements Document Initiated by Florecitaibe: Yes Documenting Scribe: Tiffany Mcdonlad Provider For Whom Tiffany is Documenting (Include Credential): Jean Marie Brambila MD Scribe Attestation: Tiffany Louise, scribed for Jean Marie Brambila MD on 07/15/18 at 1444. Scribe Documentation Reviewed: Yes Provider Attestation: The documentation as recorded by the florecitaibTiffany avila accurately reflects the service I personally performed and the decisions made by me, Jean Marie Brambila MD Status of Scribe Document: Viewed
[2018-07-15 12:43] VITALS: BP 165/82
== END 2018-07-15 12:47 | disposition home or self-care (01) ==
LOC: ED 08:55
DX: S01.81XA Laceration without foreign body of other part of head, initial encounter (principal); S49.90XA Unspecified injury of shoulder and upper arm, unspecified arm, initial encounter; W19.XXXA Unspecified fall, initial encounter; Y92.129 Unspecified place in nursing home as the place of occurrence of the external cause; I10 Essential (primary) hypertension; E78.5 Hyperlipidemia, unspecified; F03.90 Unspecified dementia, unspecified severity, without behavioral disturbance, psychotic disturbance, mood disturbance, and anxiety; Z87.891 Personal history of nicotine dependence
CPT/HCPCS: 12011; 70450; 72125; 87641; 99283

== ENCOUNTER 2018-09-22 13:06 | Emergency (ER) | payer MEDICARE ==
[2018-09-22 14:56] VITALS: BP 143/81
--- NOTE | 2018-09-23 06:02 | ED ---
Head Injury - HPI Summary HPI Summary: Patient is an 83-year-old male with history of dementia presenting to the ED by EMS from [facility] after an unwitnessed fall. Patient has a hematoma to the posterior scalp which is proximally 2 cm in width. Bleeding is controlled on arrival. Patient appears at his baseline per nursing staff. He is also complaining of neck pain, denies any limitations with range of motion, flexion and extension. Denies any other pain or tenderness throughout. - History Of Current Complaint Chief Complaint: EDHeadInjury Stated Complaint: "FALL PER EMS" Time Seen by Provider: 09/22/18 13:12 Hx Obtained From: Patient Mechanism Of Injury: Direct Blow Onset/Duration: Started Hours Ago Onset of Pain: Hours Severity Currently: Mild Severity Initially: Mild Pain Intensity: 0 Pain Scale Used: 0-10 Numeric Location of Head Injury: Occipital Associated Signs And Symptoms: Negative - confusion at baseline - Risk Factors SDH Risk Factor: Male - Allergies/Home Medications Allergies/Adverse Reactions: Allergies Allergy/AdvReac Type Severity Reaction Status Date / Time No Known Allergies Allergy Verified 04/16/18 18:19 PMH/Surg Hx/FS Hx/Imm Hx Previously Healthy: Yes Endocrine/Hematology History: Denies: Hx Diabetes Cardiovascular History: Reports: Hx Hypertension, Other Cardiovascular Problems/ Disorders - Hyperlipidemia History: Denies: Hx Dialysis Sensory History: Reports: Hx Contacts or Glasses Denies: Hx Hearing Aid Opthamlomology History: Reports: Hx Contacts or Glasses Neurological History: Reports: Hx Dementia Psychiatric History: Denies: Hx Autism - Immunization History Hx Pertussis Vaccination: No Immunizations Up to Date: Yes Infectious Disease History: No Infectious Disease History: Denies: Traveled Outside the [place] in Last 30 Days - Family History Known Family History: Positive: Other - Stroke, [place] Negative: Cardiac Disease, Diabetes - Social History Occupation: Unemployed Lives: At [facility] Alcohol Use: None Hx Substance Use: No Substance Use Type: Reports: None Hx Tobacco Use: Yes Smoking Status (MU): Former Smoker Review of Systems Negative: Fever, Chills, Fatigue, Skin Diaphoresis Negative: Palpitations, Chest Pain Negative: Shortness Of Breath, Cough Genitourinary: Negative Positive: no symptoms reported, see HPI Negative: Arthralgia, Myalgia Skin: Negative Positive: Headache All Other Systems Reviewed And Are Negative: Yes - and a polys is Physical Exam Triage Information Reviewed: Yes Vital Signs On Initial Exam: Initial Vitals Temp Pulse Resp BP Pulse Ox 97.3 F 75 14 148/63 93 09/22/18 13:09 09/22/18 13:09 09/22/18 13:09 09/22/18 13:09 09/22/18 13:09 Vital Signs Reviewed: Yes Appearance: Positive: Well-Appearing, Well-Nourished Skin: Positive: Warm, Skin Color Reflects Adequate Perfusion, Other - scalp hematoma Head/Face: Positive: Normal Head/Face Inspection Eyes: Positive: EOMI, MARTHA, Conjunctiva Clear Neck: Positive: Supple, No Lymphadenopathy Respiratory/Lung Sounds: Positive: Clear to Auscultation, Breath Sounds Present Cardiovascular: Positive: RRR, Pulses are Symmetrical in both Upper and Lower Extremities Musculoskeletal: Positive: Strength/ROM Intact Neurological: Positive: Sensory/Motor Intact, Alert, Oriented to Person Place, Time Psychiatric: Positive: Affect/Mood Appropriate AVPU Assessment: Alert Diagnostics - Vital Signs Vital Signs Temp Pulse Resp BP Pulse Ox 09/22/18 14:55 97.8 F 79 16 143/81 92 09/22/18 13:09 97.3 F 75 14 148/63 93 - Laboratory Lab Statement: Any lab studies that have been ordered have been reviewed, and results considered in the medical decision making process. Head Injury Course/Dx Course Of Treatment: On physical examination, there is a 2 cm in diameter scalp hematoma to the back of the head, bleeding is well-controlled. Patient appears at his baseline and neurologically intact for the patient. History of dementia which limits exam. Patient is not on blood thinners. He complains of neck tenderness, however rotates about the neck, flexes and extends at the neck without discomfort. Full physical examination otherwise normal. CT brain and cervical spine obtained which were both read as negative. Patient will be discharged back to [facility] with fall and head injury. - Diagnoses Differential Diagnosis/HQI/PQRI: Contusion, Hematoma Provider Diagnoses: Fall, Hematoma Discharge - Sign-Out/Discharge Documenting (check all that apply): Patient Departure Patient Received Moderate/Deep Sedation with Procedure: No - Discharge Plan Condition: Stable Disposition: HOME Patient Education Materials: Head Injury (ED) Referrals: Gordy Conde [Primary Care Provider] - Additional Instructions: Follow up with your PCP for any worsening symptoms Towel over the pillow at night to prevent bleeding onto the pillowcase - Billing Disposition and Condition Condition: STABLE Disposition: Home
== END 2018-09-22 14:55 | disposition home or self-care (01) ==
LOC: ED 13:06
DX: S00.03XA Contusion of scalp, initial encounter (principal); M50.322 Other cervical disc degeneration at C5-C6 level; F03.90 Unspecified dementia, unspecified severity, without behavioral disturbance, psychotic disturbance, mood disturbance, and anxiety; I10 Essential (primary) hypertension; E78.5 Hyperlipidemia, unspecified; Z87.891 Personal history of nicotine dependence; W19.XXXA Unspecified fall, initial encounter; Y92.129 Unspecified place in nursing home as the place of occurrence of the external cause
CPT/HCPCS: 70450; 72125; 99282

== ENCOUNTER 2019-01-03 11:20 | Emergency (ER) | payer MEDICARE ==
--- NOTE | 2019-01-03 11:35 | ED ---
Altered Mental Status - HPI Summary HPI Summary: The patient is an 83 y/o M arriving by ambulance to [facility] from [facility] with a chief complaint of altered mental status this morning. Per EMS, the patient was in the common area of the dining [place] when he because unresponsive. When EMS arrived, his blood pressure was 50/30 mmHg. EMS administered fluids en route. They note that the patient had a fall with a head injury 1 month ago without any findings throughout neurology. Patient is on comfort care meaures, DNR, DNI. PMHx: HTN, HLD, dementia. Former smoker, no EtOH, no substance use. Medications reviewed. Allergies noted. LEVEL 5 CAVEAT secondary to altered mental status. - History Of Current Complaint Stated Complaint: ALTERED MENTAL STATUS PER EMS Time Seen by Provider: 01/03/19 11:27 Hx Obtained From: EMS, Medical Records Hx From Patient Unobtainable Due To: Altered Mental Status - LEVEL 5 CAVEAT Onset/Duration: Suddenly Timing: Lasting Hours Character: Responsiveness Aggravating Factor(s): Unknown Alleviating Factor(s): Unknown - Allergies/Home Medications Allergies/Adverse Reactions: Allergies Allergy/AdvReac Type Severity Reaction Status Date / Time No Known Allergies Allergy Verified 01/03/19 11:34 PMH/Surg Hx/FS Hx/Imm Hx Endocrine/Hematology History: Denies: Hx Diabetes Cardiovascular History: Reports: Hx Hypercholesterolemia, Hx Hypertension, Other Cardiovascular Problems/Disorders - Hyperlipidemia History: Denies: Hx Dialysis Sensory History: Reports: Hx Contacts or Glasses Denies: Hx Hearing Aid Opthamlomology History: Reports: Hx Contacts or Glasses Neurological History: Reports: Hx Dementia Psychiatric History: Denies: Hx Autism - Surgical History Surgical History: Unable to Obtain/Confirm Surgery Procedure, Year, and Place: patient is level 5 caveat secondary to AMS Infectious Disease History: Unable to Obtain/Confirm - patient is level 5 caveat secondary to AMS - Family History Known Family History: Positive: Other - Stroke, [place] Negative: Cardiac Disease, Diabetes - Social History Alcohol Use: None Hx Substance Use: No Substance Use Type: Reports: None Hx Tobacco Use: Yes Smoking Status (MU): Former Smoker Review of Systems Positive: Other - low blood pressure Neurological: Other - altered mental status, decreased responsiveness All Other Systems Reviewed And Are Negative: No - Comments Additional Review of Systems Comments: LEVEL 5 CAVEAT secondary to altered mental status. Physical Exam - Summary Physical Exam Summary: VITAL SIGNS: Reviewed. Hypotensive. GENERAL: Patient is an ill-appearing and fragile elderly male who is lying comfortable in the stretcher. Patient is not in any acute respiratory distress. HEAD AND FACE: No signs of trauma. No ecchymosis, hematomas or skull depressions. No sinus tenderness. EYES: PERRLA, EOMI x 2, No injected conjunctiva, no nystagmus. EARS: Hearing grossly intact. Ear canals and tympanic membranes are within normal limits. MOUTH: Oropharynx within normal limits. NECK: Supple, trachea is midline, no adenopathy, no JVD, no carotid bruit, no c- spine tenderness, neck with full ROM. CHEST: Symmetric, no tenderness at palpation. LUNGS: Clear to auscultation bilaterally. No wheezing or crackles. CVS: Regular rate and rhythm, S1 and S2 present, no murmurs or gallops appreciated. ABDOMEN: Soft, non-tender. No signs of distention. No rebound, no guarding, and no masses palpated. Decreased bowel sounds. EXTREMITIES: FROM in all major joints, no edema, no cyanosis or clubbing. NEURO: Altered mental status. Arousable to verbal stimuli. No acute neurological deficits. SKIN: Dry and warm. Triage Information Reviewed: Yes Vital Signs Reviewed: Yes Completion Of Physical Exam Limited Due To: Altered Mental Status, Level 5 Procedures - Sedation Patient Received Moderate/Deep Sedation with Procedure: No Re-Evaluation - Re-Evaluation First Eval Re-Evaluation Time: 11:45 Change: Unchanged Comment: Nurse Bay contacted daughter Promise Hopper and health proxy Tessa Samuels who agree with MOLST and want to discontinue care in the ED. Altered Mental Statu Course/Dx - Course Assessment/Plan: LEVEL 5 CAVEAT secondary to altered mental status. Patient is an 83 y/o M arriving by amulance from [facility] with a chief complaint of decreased responsiveness and altered mental status as well as hypotension at 50/ 30 mmHg by EMS. At arrival the patient has altered mental status, unable to give any history. The patient is hypotensive with IV fluids administered by EMS. MOLST form was obtained, and he states that the patient is on comfort care , no IV fluids, no feeding tubes, and DNR/DNI. We contacted Promise Hopper, patients daughter and primary caregiver, as well as Paradise Samuels, health care proxy and power of state's attorney, and they request for the patient to be discharged back to [facility] without any intervention respecting the MOL[facility] form. Therefore, [facility] - Diagnoses Provider Diagnoses: AMS (altered mental status), Hypotension, Need for comfort care Discharge ED - Sign-Out/Discharge Documenting (check all that apply): Patient Departure - Patient will be discharged home. - Discharge Plan Condition: Stable Disposition: HOME Patient Education Materials: Hypotension (ED), Altered Mental Status (ED) Referrals: Gordy Conde [Primary Care Provider] - 3 Days Additional Instructions: Follow up with your primary care provider in 2-3 days. Return to the emergency department for any new or worsening symptoms. - Billing Disposition and Condition Condition: STABLE Disposition: Home - Attestation Statements Document Initiated by Tiffany: Yes Documenting Scribe: Andreia Moore Provider For Whom Tiffany is Documenting (Include Credential): Dr. Joaquin Montesinos MD Scribe Attestation: Andreia Louise scribed for Dr. Joaquin Montesinos MD on 01/03/19 at 1207. Scribe Documentation Reviewed: Yes Provider Attestation: The documentation as recorded by the Andreia salas accurately reflects the service I personally performed and the decisions made by me, Dr. Joaquin Montesinos MD Status of Scribe Document: Ready
[2019-01-03 13:18] VITALS: BP 74/36
== END 2019-01-03 13:17 | disposition home or self-care (01) ==
LOC: ED 11:20
DX: R41.82 Altered mental status, unspecified (principal); I95.9 Hypotension, unspecified; F03.90 Unspecified dementia, unspecified severity, without behavioral disturbance, psychotic disturbance, mood disturbance, and anxiety; Z87.891 Personal history of nicotine dependence; I10 Essential (primary) hypertension; E78.5 Hyperlipidemia, unspecified; E78.00 Pure hypercholesterolemia, unspecified
CPT/HCPCS: 99282